=== PATIENT | female | born 1940 | race Caucasian/White ===

== ENCOUNTER 2018-08-18 11:05 | Emergency (ER) | payer BC ==
--- NOTE | 2018-08-18 11:29 | ERPHSYRPT ---
- History of Present Illness Time Seen by Provider: 08/18/18 11:17 Historian: patient Exam Limitations: no limitations Patient Subjective Stated Complaint: PT HERE FOR CHEST PAIN OFF AND ON FOR A WEEK NOW, THIS EPISODE STARTED LAST NIGHT AND STATES ITS BETTER WHEN SHE IS UP AND MOVING AROUND, UNRELEIVED BY TUMS, SHE STATES SHE IS UNDER A LOT OF STRESS Triage Nursing Assessment: PT ALERT, RESP EASY, CHEST CLEAR, ABD SOFT, NO EDEMA NOTED Physician History: 78-year-old white female with history of angina, hypercholesterolemia, high blood pressure, ulcers, Patient arrives with complaint of pain in her anterior chest which occurred this morning at about 7:30 not associated with shortness of breath no nausea no vomiting last evening about a half an hour to 45 minutes resolving with getting up and moving around. Pain is described as an aching when it occurs. The patient is pain-free at this time. Patient states she's been having similar pains every morning when she wakes up she states that the pain goes away when she moves around Patient does state that she's been feeling achy for about 3 weeks generally. She had some diarrhea several weeks ago. Past medical history includes angina, hypercholesterolemia, high blood pressure , ulcers Past surgical history includes cholecystectomy, hysterectomy, heart catheter Social history patient denies tobacco alcohol or illicit drug use . Timing/Duration: other (him pain this morning at 7:30 this am lasting 1/2 hour to 45 minutes, similar pain with waking every morning for the past week resolved with activity.) Activities at Onset: rest Quality: aching Location: substernal Chest Pain Radiation: no radiation Severity of Pain-Max: moderate Severity of Pain-Current: none Modifying Factors: Improves With: other (pain resolves with activity) Associated Symptoms: No nausea, No vomiting, No palpitations, No heartburn, No abdominal pain, No shortness of breath, No cough, No hurts to breathe, No diaphoresis, No chills, No fever, No fatigue, No weakness, No swelling/lump in chest, No syncope, No rash, No headache, No dizziness, No edema, No back pain Prior Chest Pain/Cardiac Workup: cardiac cath (heart catheter several years ago) Nitro Today/Relief: no nitro taken today Aspirin Treatment Today: 81 mg x 1 (81 mg at home 03:00today), 81 mg x 3 (243 mg in er) Allergies/Adverse Reactions: codeine [Codeine] Adverse Reaction (Intermediate, Verified 08/18/18 11:13) chest pain Home Medications: Amlodipine Besylate 10 mg [Norvasc 10 MG] 10 mg PO DAILY 04/19/12 [History] Aspirin 81 gm Chew [Baby Aspirin 81 mg Chew] 81 mg PO DAILY 04/19/12 [History ] Calcium 1 ea DAILY 04/19/12 [History] Enalapril Maleate mg PO DAILY 04/19/12 [History] Multivitamin/Iron/Folic Acid [Centrum Complete Multivit Tab] 1 ea PO DAILY 04/19 [History] Paroxetine HCl 10 mg PO DAILY 04/19/12 [History] Atorvastatin Calcium 80 mg DAILY 08/18/18 [History] Enalapril/Hydrochlorothiazide [Enalapril-Hctz 10-25 mg Tablet] 10 - 25 mg DAILY 08/18/18 [History] Ezetimibe 10 mg DAILY 08/18/18 [History] Hx Tetanus, Diphtheria Vaccination/Date Given: (unknown) Hx Influenza Vaccination/Date Given: No Hx Pneumococcal Vaccination/Date Given: No Immunizations Up to Date: Yes - Review of Systems Constitutional: No Fever, No Chills Eyes: No Symptoms Ears, Nose, & Throat: No Symptoms Respiratory: No Cough, No Dyspnea Cardiac: Chest Pain Abdominal/Gastrointestinal: No Abdominal Pain, No Nausea, No Vomiting, No Diarrhea Genitourinary Symptoms: No Dysuria Musculoskeletal: No Back Pain, No Neck Pain Skin: No Rash Neurological: No Dizziness, No Focal Weakness, No Sensory Changes Psychological: No Symptoms Endocrine: No Symptoms All Other Systems: Reviewed and Negative - Past Medical History Pertinent Past Medical History: Yes Neurological History: No Pertinent History ENT History: No Pertinent History Cardiac History: Angina, High Cholesterol, Hypertension Respiratory History: No Pertinent History Endocrine Medical History: No Pertinent History Musculoskeletal History: No Pertinent History GI Medical History: Ulcer, Other History: No Pertinent History Psycho-Social History: Depression Female Reproductive Disorders: No Pertinent History Other Medical History: bleeding ulcers - Past Surgical History Past Surgical History: Yes Neuro Surgical History: No Pertinent History Cardiac: Cardiac Catheterization Respiratory: No Pertinent History Gastrointestinal: Appendectomy, Cholecystectomy Genitourinary: No Pertinent History Musculoskeletal: No Pertinent History Female Surgical History: Hysterectomy - Social History Smoking Status: Never smoker Exposure to second hand smoke: No Drug Use: none Patient Lives Alone: Yes - Female History Hx Last Menstrual Period: PSOT Hx Now: No - Nursing Vital Signs Nursing Vital Signs: Initial Vital Signs Temperature 98.0 F 08/18/18 11:08 Pulse Rate 74 08/18/18 11:08 Respiratory Rate 16 08/18/18 11:08 Blood Pressure 189/94 08/18/18 11:08 O2 Sat by Pulse Oximetry 99 08/18/18 11:08 Pain Scale Pain Intensity 1 - Physical Exam General Appearance: no apparent distress, alert Eye Exam: PERRL/EOMI, eyes nml inspection Ears, Nose, Throat Exam: normal ENT inspection, moist mucous membranes Neck Exam: normal inspection, non-tender, supple, full range of motion Respiratory Exam: normal breath sounds, lungs clear, No respiratory distress Cardiovascular Exam: regular rate/rhythm, normal heart sounds Gastrointestinal/Abdomen Exam: soft, No tenderness, No mass Back Exam: normal inspection, No CVA tenderness, No vertebral tenderness Extremity Exam: normal inspection, normal range of motion Neurologic Exam: alert, oriented x 3, cooperative, electrician third II-XII nml as tested, normal mood/affect, sensation nml, No motor deficits Skin Exam: normal color, warm, dry SpO2 Interpretation: normal (99%) SpO2: 99 Oxygen Delivery: Room Air - Course Nursing assessment & vital signs reviewed: Yes EKG Interpreted by Me: RATE (72 bpm), Sinus Rhythm, NORMAL AXIS, Other (EKG: Sinus rhythm, 72 bpm, normal axis, no acute st or t wave changes, isolated T- wave inversion v-4) - Radiology Exams Chest X-ray Interpretation: Interpreted by me (cxr: no acute disease process noted) - CT Exams Chest CT Interpretation: Tele-radiologist Report (CTA chest: Impression 1. No evidence of acute pulmonary embolli. 2. Minimal atherosclerosis of the left anterior descending coronary artery. 3. Ground glass opacification in the lower lungs nonspecific finding. 4. 1.71.42 cm mete hypodensity in the right with attenuation of 19 housefield units suggest further evaluation with ultrasound.) Ordered Tests: Active Orders 24 hr Category Date Time Status Chief Deputy Clerk/Bailiff STAT Care 08/18/18 11:23 Active EKG-ER Only STAT Care 08/18/18 11:22 Active IV Insertion STAT Care 08/18/18 11:22 Active Pulse Oximetry (ED) STAT Care 08/18/18 11:22 Active CHEST 1 VIEW (PORTABLE) Stat Exams 08/18/18 11:23 Taken CHEST WITH CONTRAST [CT] Stat Exams 08/18/18 12:17 Taken AMYLASE Stat Lab 08/18/18 11:20 Completed CBC W DIFF Stat Lab 08/18/18 11:20 Completed CMP Stat Lab 08/18/18 11:20 Completed D-DIMER QUANTITATION Stat Lab 08/18/18 11:20 Completed LIPASE Stat Lab 08/18/18 11:20 Completed TROPONIN Q3H Lab 08/18/18 11:20 Completed TROPONIN Q3H Lab 08/18/18 14:12 Completed TROPONIN Q3H Lab 08/18/18 17:30 Ordered TROPONIN Q3H Lab 08/18/18 20:30 Ordered TROPONIN Q3H Lab 08/18/18 23:30 Ordered Medication Summary Discontinued Medications Generic Name Dose Route Start Last Admin Trade Name Freq PRN Reason Stop Dose Admin Aspirin 243 mg 08/18/18 11:22 08/18/18 12:08 Baby Aspirin 81 Mg Chew PO 08/18/18 11:23 243 mg STAT ONE Administration Aspirin Confirm 08/18/18 11:54 Baby Aspirin 81 Mg Chew Administered 08/18/18 11:55 Dose 243 mg .ROUTE .STK-MED ONE Lab/Rad Data: Laboratory Result Diagrams 08/18/18 11:20 08/18/18 11:20 Laboratory Results 08/18/18 08/18/18 08/18/18 Range/Units 14:12 11:20 11:20 WBC (4.0-10.5) K/mm3 RBC (4.1-5.4) M/mm3 Hgb (12.0-16.0) gm/dl Hct (35-47) % MCV (78-100) fl MCH (26-32) pg MCHC (32-36) g/dl RDW (11.5-14.0) % Plt Count (150-450) K/mm3 MPV (6-9.5) fl Gran % (36.0-66.0) % Eos # (Auto) (0-0.5) Absolute Lymphs (auto) (1.0-4.6) Absolute Monos (auto) (0.0-1.3) Lymphocytes % (24.0-44.0) % Monocytes % (0.0-12.0) % Eosinophils % (0.00-5.0) % Basophils % (0.0-0.4) % Absolute Granulocytes (1.4-6.9) Basophils # (0-0.4) D-Dimer 1077 H* (215-500) ng/mL Sodium (137-145) mmol/L Potassium (3.5-5.1) mmol/L Chloride (98-107) mmol/L Carbon Dioxide (22-30) mmol/L Anion Gap (5-15) MEQ/L BUN (7-17) mg/dL Creatinine (0.52-1.04) mg/dL Estimated GFR ML/MIN Glucose (74-106) mg/dL Calcium (8.4-10.2) mg/dL Total Bilirubin (0.2-1.3) mg/dL AST (14-36) U/L ALT (0-35) U/L Alkaline Phosphatase (38-126) U/L Troponin I < 0.012 < 0.012 (0.000-0.034) ng/mL Serum Total Protein (6.3-8.2) g/dL Albumin (3.5-5.0) g/dL Amylase (30-110) U/L Lipase (23-300) U/L 08/18/18 08/18/18 Range/Units 11:20 11:20 WBC 8.0 (4.0-10.5) K/mm3 RBC 4.29 (4.1-5.4) M/mm3 Hgb 13.9 (12.0-16.0) gm/dl Hct 42.4 (35-47) % MCV 98.8 (78-100) fl MCH 32.4 H (26-32) pg MCHC 32.8 (32-36) g/dl RDW 13.7 (11.5-14.0) % Plt Count 243 (150-450) K/mm3 MPV 11.8 H (6-9.5) fl Gran % 64.5 (36.0-66.0) % Eos # (Auto) 0.33 (0-0.5) Absolute Lymphs (auto) 1.79 (1.0-4.6) Absolute Monos (auto) 0.67 (0.0-1.3) Lymphocytes % 22.3 L (24.0-44.0) % Monocytes % 8.4 (0.0-12.0) % Eosinophils % 4.1 (0.00-5.0) % Basophils % 0.7 (0.0-0.4) % Absolute Granulocytes 5.16 (1.4-6.9) Basophils # 0.06 (0-0.4) D-Dimer (215-500) ng/mL Sodium 142 (137-145) mmol/L Potassium 3.6 (3.5-5.1) mmol/L Chloride 102 (98-107) mmol/L Carbon Dioxide 31 H (22-30) mmol/L Anion Gap 12.0 (5-15) MEQ/L BUN 14 (7-17) mg/dL Creatinine 0.60 (0.52-1.04) mg/dL Estimated GFR > 60.0 ML/MIN Glucose 109 H (74-106) mg/dL Calcium 10.5 H (8.4-10.2) mg/dL Total Bilirubin 0.40 (0.2-1.3) mg/dL AST 35 (14-36) U/L ALT 24 (0-35) U/L Alkaline Phosphatase 87 (38-126) U/L Troponin I (0.000-0.034) ng/mL Serum Total Protein 7.5 (6.3-8.2) g/dL Albumin 4.4 (3.5-5.0) g/dL Amylase 52 (30-110) U/L Lipase 59 (23-300) U/L - Progress Progress: improved Air Movement: fair Progress Note: 08/18/18 12:19 78-year-old white female with history of angina, hypercholesterolemia high blood pressure, ulcers. Complaining of pain when she wakes up every morning for the last week described as an aching in her chest. She states this gets better when she gets up and moves around. She states that she had similar pain all day yesterday. This morning she woke up had the pain at about 7:30 AM. The resolved after a half an hour after getting up and around. She is not short of breath has no pain at this time. Patient was EKG noted to have sinus rhythm, 72 bpm, normal axis she does have an isolated T-wave inversion in V4. Chest x-ray is unremarkable troponin within normal limits. Unfortunately the patient's d-dimer is elevated at 1077 Will go ahead and obtain CT of the chest to rule out PE 08/18/18 14:[address] obtained no evidence of pulmonary emboli minimal atherosclerosis and LAD ground glass opacification in the lower lungs nonspecific finding .patient did have a 1.71.42 cm hypodensity in the right lobe of the thyroid within attenuation of 19 Hounsfield units further evaluation with thyroid ultrasound is recommended. 08/18/18 14:15 I discussed the patient's case with Dr. Ferreira who is diamond picker for Dr. Araujo, the patient's closed circuit screen watcher, Patient was not wanting to be admitted to the hospital or transferred. He recommended patient be placed on Imdur 30 mg by mouth daily. As well as nitroglycerin 0.4 mg sublingually when necessary. . Will repeat patient's troponin. If normal will discharge. They will be advised the patient contact her closed circuit screen watcher tomorrow. 08/18/18 14:48 Patient's repeat troponin is normal, patient in no distress. Will discharge with prescription for Imdur and nitroglycerin sublingually has recommended by Dr. Ferreira. Patient also with a hypodensity on her thyroid on CT scan Will recommend patient follow-up with Dr. Benavides. Will discharge - Departure Time of Disposition: 14:49 Departure Disposition: Home Clinical Impression: abnormal's thyroid on CT scan Chest pain Qualifiers: Chest pain type: unspecified Qualified Code(s): R07.9 - Chest pain, unspecified Condition: Fair Critical Care Time: No Referrals: LUDMILA BENAVIDES MD [Primary Care Provider] - Additional Instructions: Return home, rest. Imdur and sublingual nitroglycerin as prescribed. Continue current medications. Contact your closed circuit screen watcher tomorrow to arrange follow-up. you had an abnormality on your thyroid scan on CT you'll need to follow-up with your family doctor regarding this. Return for acute distress or for severe symptoms or for any problems. Prescriptions: Isosorbide Mononitrate 30 mg [Imdur 30 MG] 30 mg PO DAILY #14 tab
[2018-08-18] MEDS ORDERED: BABY ASPIRIN 81 MG CHEW ONE (11:54)
[2018-08-18 12:01] LABS: BASOPHIL % 0.7 % (0.0-0.4); Basophil (Absolute #) 0.06 (0-0.4); Eosinophil % 4.1 % (0.00-5.0); Eosinophil (Absolute #) 0.33 (0-0.5); Granulocyte Absolute (ANC) 5.16 (1.4-6.9); Granulocytes % 64.5 % (36.0-66.0); Hematocrit 42.4 % (35-47); Hemoglobin 13.9 gm/dl (12.0-16.0); Lymphocyte (Absolute #) 1.79 (1.0-4.6); Lymphocytes % 22.3 % (24.0-44.0); Mean Cell Volume 98.8 fl (78-100); Mean Corpuscular Hemoglobin 32.4 pg (26-32); Mean Corpuscular Hgb Concent. 32.8 g/dl (32-36); Mean Platelet Volume 11.8 fl (6-9.5); Monocyte (Absolute #) 0.67 (0.0-1.3); Monocytes % 8.4 % (0.0-12.0); Platelet Count 243 K/mm3 (150-450); Red Blood Count 4.29 M/mm3 (4.1-5.4); Red Cell Distribution Width 13.7 % (11.5-14.0)
[2018-08-18 12:02] LABS: ALBUMIN 4.4 g/dL (3.5-5.0); ALKALINE PHOSPHATASE 87 U/L (38-126); AMYLASE 52 U/L (30-110); BLOOD UREA NITROGEN 14 mg/dL (7-17); CHLORIDE 102 mmol/L (98-107); Calcium 10.5 mg/dL (8.4-10.2); Carbon Dioxide 31 mmol/L (22-30); Glucose 109 mg/dL (74-106); LIPASE 59 U/L (23-300); Potassium 3.6 mmol/L (3.5-5.1); SGOT/AST 35 U/L (14-36); SGPT/ALT 24 U/L (0-35); SODIUM 142 mmol/L (137-145); Total Protein 7.5 g/dL (6.3-8.2)
[2018-08-18] MEDS: BABY ASPIRIN 81 MG CHEW PO ONE (12:08)
[2018-08-18 15:25] VITALS: O2SAT 98
[2018-08-18 15:40] VITALS: BP 144/61; PULSE 74
--- NOTE | 2018-08-18 20:13 | XRAY ---
Indication: Chest pain and elevated d-dimer. Multiple contiguous axial images obtained through the chest using 100 cc Isovue-370 contrast and PE protocol. Comparison: None There is good opacification of the pulmonary arteries to include the lobar and segmental branches. No filling defect or pulmonary embolus. Heart is not enlarged. Aorta is mildly atherosclerotic without aneurysm/dissection. No pathologic mediastinal/hilar lymphadenopathy. Slightly enlarged and heterogeneous right thyroid gland. Examination of the lung parenchyma demonstrates minimal bilateral dependent atelectasis. No suspicious pulmonary mass, infiltrate, or effusion. Bony thorax intact. Limited upper abdomen demonstrates fatty liver and 1.2 cm right lobe hepatic cyst near the dome of the diaphragm. Impression: 1. Negative pulmonary embolus. No acute cardiopulmonary abnormalities. 2. Fatty liver and hepatic cyst. 3. Incidental enlarged heterogeneous right thyroid gland better evaluated with ultrasound if clinically warranted. Comment: Preliminary interpretation was made by [facility]. No critical discrepancy. CTDI 16.67
--- NOTE | 2018-08-18 20:15 | XRAY ---
Indication: Chest pain. Comparison: January 21, 2016. Portable chest remains clear. Heart and mediastinal structures within normal limits. Bony thorax intact. No new/acute findings. Impression: Stable nonacute chest.
== END 2018-08-18 15:39 | disposition home or self-care (01) ==
LOC: ED 11:05
DX: R07.9 Chest pain, unspecified (principal); R94.6 Abnormal results of thyroid function studies; Z79.899 Other long term (current) drug therapy; Z79.82 Long term (current) use of aspirin
CPT/HCPCS: 36000; 36415; 71045; 71260; 80053; 82150; 83690; 84484; 85025; 85379; 93005; 93041; 99284; A9270-GY

== ENCOUNTER 2019-01-14 16:45 | Emergency (ER) | payer BC ==
--- NOTE | 2019-01-14 17:18 | ERPHSYRPT ---
- History of Present Illness Time Seen by Provider: 01/14/19 17:06 Source: patient Exam Limitations: no limitations Patient Subjective Stated Complaint: states had felt irregular heart beat for one week. called heart doctor and he advised to come to the er. denies any pain Triage Nursing Assessment: ambulated to room per self. skin w/d, color normal, resp easy. denies pain. place on heart monitor. sinus rhythm with occasional pvc. Physician History: 78-year-old white female arrives with complaint of palpitations and irregular heart rate symptoms going on for a week. She denies any chest pain denies any shortness of breath she states no nausea no vomiting she states she really hasn't felt ill. She states that she contacted her physician's office and was told to present to the emergency room. Past medical history includes angina, hyperlipidemia, ulcers, depression, bleeding ulcers Past surgical history includes cardiac catheter, appendectomy, cholecystectomy, hysterectomy Social history denies tobacco alcohol or illicit drugs Timing/Duration: today Severity: mild Modifying Factors: Improves With: nothing Associated Symptoms: other (palpitations), No nausea, No vomiting, No abdominal pain, No shortness of breath, No heartburn, No diaphoresis, No cough, No chills , No chest pain, No fever, No headaches, No loss of appetite, No malaise, No rash, No syncope, No seizure, No weakness Allergies/Adverse Reactions: codeine [Codeine] Adverse Reaction (Intermediate, Verified 01/14/19 17:02) chest pain Home Medications: Aspirin 81 gm Chew [Baby Aspirin 81 mg Chew] 81 mg PO DAILY 04/19/12 [History ] Calcium 1 ea DAILY 04/19/12 [History] Multivitamin/Iron/Folic Acid [Centrum Complete Multivit Tab] 1 ea PO DAILY 04/19 [History] Paroxetine HCl 10 mg PO DAILY 04/19/12 [History] Atorvastatin Calcium 80 mg DAILY 08/18/18 [History] Ezetimibe 10 mg DAILY 08/18/18 [History] Lisinopril/Hydrochlorothiazide [Lisinopril-Hctz 20-12.5 mg Tab] 1 each PO DAILY 01/14/19 [History] Hx Tetanus, Diphtheria Vaccination/Date Given: No (unknown) Hx Influenza Vaccination/Date Given: Yes Hx Pneumococcal Vaccination/Date Given: Yes - Review of Systems Constitutional: No Fever, No Chills Eyes: No Symptoms Ears, Nose, & Throat: No Symptoms Respiratory: No Cough, No Dyspnea Cardiac: Palpitations, No Chest Pain, No Edema, No Syncope, No Orthopnea, No PND Abdominal/Gastrointestinal: No Abdominal Pain, No Nausea, No Vomiting, No Diarrhea Genitourinary Symptoms: No Dysuria Musculoskeletal: No Back Pain, No Neck Pain Skin: No Rash Neurological: No Dizziness, No Focal Weakness, No Sensory Changes Psychological: No Symptoms Endocrine: No Symptoms All Other Systems: Reviewed and Negative - Past Medical History Pertinent Past Medical History: Yes Neurological History: No Pertinent History ENT History: No Pertinent History Cardiac History: Angina, High Cholesterol, Hypertension Respiratory History: No Pertinent History Endocrine Medical History: No Pertinent History Musculoskeletal History: No Pertinent History GI Medical History: Ulcer, Other History: No Pertinent History Psycho-Social History: Depression Female Reproductive Disorders: No Pertinent History Other Medical History: bleeding ulcers - Past Surgical History Past Surgical History: Yes Neuro Surgical History: No Pertinent History Cardiac: Cardiac Catheterization Respiratory: No Pertinent History Gastrointestinal: Appendectomy, Cholecystectomy Genitourinary: No Pertinent History Musculoskeletal: No Pertinent History Female Surgical History: Hysterectomy - Social History Smoking Status: Never smoker Exposure to second hand smoke: No Drug Use: none Patient Lives Alone: No - Female History Hx Now: No - Nursing Vital Signs Nursing Vital Signs: Initial Vital Signs Temperature 97.5 F 01/14/19 16:53 Pulse Rate 84 01/14/19 16:53 Respiratory Rate 16 01/14/19 16:53 Blood Pressure 144/68 01/14/19 16:53 O2 Sat by Pulse Oximetry 100 01/14/19 16:53 Pain Scale Pain Intensity 0 - Physical Exam General Appearance: no apparent distress, alert Eye Exam: PERRL/EOMI, eyes nml inspection Ears, Nose, Throat Exam: normal ENT inspection, TMs normal, pharynx normal, moist mucous membranes Neck Exam: normal inspection, non-tender, supple, full range of motion Respiratory Exam: normal breath sounds, lungs clear, No respiratory distress Cardiovascular Exam: normal heart sounds, normal peripheral pulses, capillary refill <2 sec, other (irregular) Gastrointestinal/Abdomen Exam: soft, normal bowel sounds, No tenderness, No mass Back Exam: normal inspection, normal range of motion, No CVA tenderness, No vertebral tenderness Extremity Exam: normal inspection, normal range of motion, pelvis stable Neurologic Exam: alert, oriented x 3, cooperative, environmental program manager II-XII nml as tested, normal mood/affect, nml cerebellar function, nml station & gait, sensation nml, No motor deficits Skin Exam: normal color, warm, dry, No rash Lymphatic Exam: No adenopathy SpO2 Interpretation: normal (98%) SpO2: 98 - Course Nursing assessment & vital signs reviewed: Yes EKG Interpreted by Me: RATE (67 bpm), Left [place] Deviation, Other (EKG: Sinus arrhythmia, 67 bpm, PVCs, left axis deviation, no acute ST or T wave changes noted.) Ordered Tests: Active Orders 24 hr Category Date Time Status Watershed Coordinator STAT Care 01/14/19 17:04 Active EKG-ER Only STAT Care 01/14/19 17:04 Active EKG-ER Only STAT Care 01/14/19 18:19 Active IV Insertion STAT Care 01/14/19 17:04 Active Pulse Oximetry (ED) STAT Care 01/14/19 17:04 Active CBC W DIFF Stat Lab 01/14/19 17:11 Completed CMP Stat Lab 01/14/19 17:11 Completed TROPONIN Q3H Lab 01/14/19 17:15 Completed TROPONIN Q3H Lab 01/14/19 20:15 Ordered TROPONIN Q3H Lab 01/14/19 23:15 Ordered TROPONIN Q3H Lab 01/15/19 02:15 Ordered TROPONIN Q3H Lab 01/15/19 05:15 Ordered TSH [TSH, 3RD Generation] Stat Lab 01/14/19 17:13 Ordered Lab/Rad Data: Laboratory Result Diagrams 01/14/19 17:11 01/14/19 17:11 Laboratory Results 01/14/19 01/14/19 01/14/19 Range/Units 17:15 17:11 17:11 WBC 7.7 (4.0-10.5) K/mm3 RBC 4.01 L (4.1-5.4) M/mm3 Hgb 12.7 (12.0-16.0) gm/dl Hct 40.6 (35-47) % MCV 101.2 H (78-100) fl MCH 31.6 (26-32) pg MCHC 31.3 L (32-36) g/dl RDW 14.1 H (11.5-14.0) % Plt Count 216 (150-450) K/mm3 MPV 12.5 H (6-9.5) fl Gran % 63.8 (36.0-66.0) % Eos # (Auto) 0.33 (0-0.5) Absolute Lymphs (auto) 1.71 (1.0-4.6) Absolute Monos (auto) 0.69 (0.0-1.3) Lymphocytes % 22.2 L (24.0-44.0) % Monocytes % 8.9 (0.0-12.0) % Eosinophils % 4.3 (0.00-5.0) % Basophils % 0.8 (0.0-0.4) % Absolute Granulocytes 4.93 (1.4-6.9) Basophils # 0.06 (0-0.4) Sodium 144 (137-145) mmol/L Potassium 4.0 (3.5-5.1) mmol/L Chloride 105 (98-107) mmol/L Carbon Dioxide 33 H (22-30) mmol/L Anion Gap 9.1 (5-15) MEQ/L BUN 21 H (7-17) mg/dL Creatinine 0.89 (0.52-1.04) mg/dL Estimated GFR > 60.0 ML/MIN Glucose 90 (74-106) mg/dL Calcium 10.1 (8.4-10.2) mg/dL Total Bilirubin 0.60 (0.2-1.3) mg/dL AST 31 (14-36) U/L ALT 21 (0-35) U/L Alkaline Phosphatase 68 (38-126) U/L Troponin I < 0.012 (0.000-0.034) ng/mL Serum Total Protein 7.4 (6.3-8.2) g/dL Albumin 4.2 (3.5-5.0) g/dL - Progress Progress: improved Progress Note: 01/14/19 17:16 78-year-old white female arrives with complaint of feeling as if she has an irregular heart rate for one week she denies any chest pain shortness of breath nausea vomiting she has not been ill she has no fevers. She apparently called her physician's office and was told to present to the emergency room. Patient with an EKG that shows sinus arrhythmia with PAC's 67 bpm, left axis deviation, no acute ST or T wave changes are noted. Will go ahead and check labs CBC CMP TSH T4 troponin. 01/14/19 18:25 Patient's CBC chemistry and troponin are all normal. Repeat EKG is obtained EKG sinus arrhythmia with PACs, 77 bpm, left axis deviation, no acute ST or T wave changes noted. 01/14/19 18:36 Patient in no acute distress. Patient denies shortness of breath chest pain nausea vomiting EKG shows sinus arrhythmia with PACs and one PVC CBC CMP troponin essentially normal. TSH is pending T4 is pending. Case is discussed with Dr. Nagy. Will discharge patient patient to follow-up with Dr. Benavides patient to call Dr. Benavides's office for an appointment. - Departure Time of Disposition: 18:37 Departure Disposition: Home Clinical Impression: Palpitations Condition: Fair Critical Care Time: No Referrals: LUDMILA BENAVIDES MD [Primary Care Provider] - Instructions: Palpitations (DC) Additional Instructions: Return home, rest, plenty of fluids. Follow-up with Dr. Benavides, call and schedule an appointment. Return for acute distress or for severe symptoms.
[2019-01-14 18:02] VITALS: PULSE 68
[2019-01-14 18:05] LABS: ALBUMIN 4.2 g/dL (3.5-5.0); ALKALINE PHOSPHATASE 68 U/L (38-126); ANION GAP 9.1 MEQ/L (5-15); BLOOD UREA NITROGEN 21 mg/dL (7-17); CHLORIDE 105 mmol/L (98-107); Calcium 10.1 mg/dL (8.4-10.2); Carbon Dioxide 33 mmol/L (22-30); Creatinine 1 0.89 mg/dL (0.52-1.04); Glucose 90 mg/dL (74-106); SGOT/AST 31 U/L (14-36); SGPT/ALT 21 U/L (0-35); SODIUM 144 mmol/L (137-145); Total Protein 7.4 g/dL (6.3-8.2)
[2019-01-14 18:15] LABS: BASOPHIL % 0.8 % (0.0-0.4); Basophil (Absolute #) 0.06 (0-0.4); Eosinophil % 4.3 % (0.00-5.0); Eosinophil (Absolute #) 0.33 (0-0.5); Granulocyte Absolute (ANC) 4.93 (1.4-6.9); Granulocytes % 63.8 % (36.0-66.0); Hematocrit 40.6 % (35-47); Hemoglobin 12.7 gm/dl (12.0-16.0); Lymphocyte (Absolute #) 1.71 (1.0-4.6); Lymphocytes % 22.2 % (24.0-44.0); Mean Cell Volume 101.2 fl (78-100); Mean Corpuscular Hgb Concent. 31.3 g/dl (32-36); Mean Platelet Volume 12.5 fl (6-9.5); Monocyte (Absolute #) 0.69 (0.0-1.3); Monocytes % 8.9 % (0.0-12.0); Platelet Count 216 K/mm3 (150-450); Red Blood Count 4.01 M/mm3 (4.1-5.4); Red Cell Distribution Width 14.1 % (11.5-14.0); White Blood Count 7.7 K/mm3 (4.0-10.5)
[2019-01-14 18:16] LABS: Mean Corpuscular Hemoglobin 31.6 pg (26-32)
[2019-01-14 18:49] VITALS: BP 128/53; O2SAT 97
== END 2019-01-14 18:58 | disposition home or self-care (01) ==
LOC: ED 16:45
DX: R00.2 Palpitations (principal); I10 Essential (primary) hypertension; E78.00 Pure hypercholesterolemia, unspecified; E78.5 Hyperlipidemia, unspecified; F32.9 Major depressive disorder, single episode, unspecified; Z79.899 Other long term (current) drug therapy
CPT/HCPCS: 36000; 36415; 80053; 84439; 84443; 84484; 85025; 93005; 93041; 99284

== ENCOUNTER 2020-07-31 16:21 | Inpatient (IN) | payer MEDICARE, BC ==
[2020-07-31] MEDS ORDERED: Zofran 4 MG/2 ML VIAL IV ONE (17:13)
[2020-07-31] MEDS ORDERED: Pepcid 20 MG VIAL IV ONE ×2 (17:13→17:21)
[2020-07-31] MEDS ORDERED: Sodium Chloride 0.9% 1000 ML 1,000 ML IV STA (17:13)
[2020-07-31] MEDS ORDERED: GI COCKTAIL 45 ML (Maalox/Lidocaine) PO ONE (17:13)
[2020-07-31] MEDS ORDERED: Zofran 4 MG/2 ML VIAL ONE (17:21)
--- NOTE | 2020-07-31 17:21 | ERPHSYRPT ---
- History of Present Illness Time Seen by Provider: 07/31/20 16:47 Historian: patient Exam Limitations: no limitations Patient Subjective Stated Complaint: pt here for epigastric pain that started today, with paimiut nasuea,and loose stools. no fever Triage Nursing Assessment: pt alert, resp easy. face mask in place, skin w/d/p. moves all ext well, abd soft Physician History: 80 years old female presented in the ER with chief complaint of epigastric pain sudden onset this afternoon moderate intensity, sharp in nature with radiation to the upper abdomen and substernal without any significant aggravating or relieving factor and started to improve and currently not having any pain on presentation in the ER. Patient report no nausea or vomiting associated with it. She also report having 3-4 episodes of loose stool this morning and has taken Imodium and now did not have any bowel movement for the last 4 hours. De nies any sick contact, fever or chills. Timing/Duration: today, sudden, worse Activities at Onset: rest Quality: dullness, sharpness Abdominal Pain Onset Location: epigastric Pain Radiation: chest Severity of Pain-Max: moderate Severity of Pain-Current: moderate Modifying Factors: Improves With: nothing Associated Symptoms: diarrhea Previous symptoms: no prior history Allergies/Adverse Reactions: codeine [Codeine] Adverse Reaction (Intermediate, Verified 07/31/20 17:01) chest pain Home Medications: Aspirin 81 gm Chew [Baby Aspirin 81 mg Chew] 81 mg PO HS 04/19/12 [History] Calcium 1 tab PO HS 04/19/12 [History] Multivitamin/Iron/Folic Acid [Centrum Complete Multivit Tab] 1 ea PO HS 04/19/12 [History] Ezetimibe 10 mg PO HS 08/18/18 [History] Lisinopril/Hydrochlorothiazide [Lisinopril-Hctz 20-12.5 mg Tab] 1 each PO BID 01/14/19 [History] Atorvastatin Calcium 40 mg PO HS 07/31/20 [History] Paroxetine HCl 20 mg [Paxil 20 MG] 20 mg PO HS 07/31/20 [History] Hx Tetanus, Diphtheria Vaccination/Date Given: No (unknown) Hx Influenza Vaccination/Date Given: Yes Hx Pneumococcal Vaccination/Date Given: Yes Immunizations Up to Date: Yes Travel Risk - International Travel Have you traveled outside of the country in past 3 weeks: No - Coronavirus Screening Are you exhibiting any of the following symptoms?: No Close contact with a COVID-19 positive Pt in past 14-21 Days: No - Review of Systems Constitutional: No Symptoms Eyes: No Symptoms Ears, Nose, & Throat: No Symptoms Respiratory: No Symptoms Cardiac: Chest Pain Abdominal/Gastrointestinal: Abdominal Pain, Diarrhea Genitourinary Symptoms: No Symptoms Musculoskeletal: No Symptoms Skin: No Symptoms Neurological: No Symptoms Psychological: No Symptoms Endocrine: No Symptoms Hematologic/Lymphatic: No Symptoms Immunological/Allergic: No Symptoms - Past Medical History Pertinent Past Medical History: Yes Neurological History: No Pertinent History ENT History: No Pertinent History Cardiac History: Angina, High Cholesterol, Hypertension Respiratory History: No Pertinent History Endocrine Medical History: No Pertinent History Musculoskeletal History: No Pertinent History GI Medical History: Ulcer, Other History: No Pertinent History Psycho-Social History: Depression Female Reproductive Disorders: No Pertinent History Other Medical History: bleeding ulcers - Past Surgical History Past Surgical History: Yes Neuro Surgical History: No Pertinent History Cardiac: Cardiac Catheterization Respiratory: No Pertinent History Gastrointestinal: Appendectomy, Cholecystectomy Genitourinary: No Pertinent History Musculoskeletal: No Pertinent History Female Surgical History: Hysterectomy - Social History Smoking Status: Never smoker Exposure to second hand smoke: No Drug Use: none Patient Lives Alone: No - Female History Hx Last Menstrual Period: post Hx Now: No - Nursing Vital Signs Nursing Vital Signs: Initial Vital Signs Temperature 97.5 F 07/31/20 16:47 Pulse Rate 58 L 07/31/20 16:47 Respiratory Rate 18 07/31/20 16:47 Blood Pressure 148/56 07/31/20 16:47 O2 Sat by Pulse Oximetry 99 07/31/20 16:47 Pain Scale Pain Intensity 2 - Physical Exam General Appearance: no apparent distress, alert Eye Exam: PERRL/EOMI, eyes nml inspection Ears, Nose, Throat Exam: normal ENT inspection, pharynx normal Neck Exam: normal inspection, non-tender, supple, full range of motion Respiratory Exam: normal breath sounds, lungs clear Cardiovascular Exam: regular rate/rhythm, normal heart sounds Gastrointestinal/Abdomen Exam: soft, normal bowel sounds, tenderness (Minimal epigastric) Back Exam: normal inspection, normal range of motion Extremity Exam: normal inspection, normal range of motion, pelvis stable Neurologic Exam: alert, oriented x 3, cooperative Skin Exam: normal color SpO2 Interpretation: normal SpO2: 99 O2 Delivery: Room Air - Course Nursing assessment & vital signs reviewed: Yes EKG Interpreted by Me: RATE (78), Sinus Rhythm, NORMAL AXIS, NORMAL INTERVALS, Other (PACs) Ordered Tests: Active Orders 24 hr Category Date Time Status Bedrest ROUTINE Activity 07/31/20 21:48 Active Up With Assistance ROUTINE Activity 07/31/20 21:48 Active Dresser Tender STAT Care 07/31/20 17:33 Completed Code Status Order ROUTINE Care 07/31/20 21:48 Active EKG-ER Only STAT Care 07/31/20 17:12 Completed Fall Protocol Q1H Care 07/31/20 21:48 Active IV Care Q6H Care 07/31/20 21:48 Active IV Insertion STAT Care 07/31/20 17:12 Completed NPO (ED) STAT Care 07/31/20 17:[address] in Observation ROUTINE Care 07/31/20 21:48 Active Paulie Hose, Apply ROUTINE Care 07/31/20 21:48 Active Weight,Daily 0600 Care 07/31/20 21:48 Active ABDOMEN AND PELVIS W/0 CONTRAS [CT] Stat Exams 07/31/20 18:28 Completed CBC W DIFF AM.LAB Lab 08/01/20 04:00 Ordered CBC W DIFF Stat Lab 07/31/20 17:05 Completed CMP AM.LAB Lab 08/01/20 04:00 Ordered CMP Stat Lab 07/31/20 17:05 Completed CULTURE,URINE Stat Lab 07/31/20 17:05 Received LIPASE Stat Lab 07/31/20 17:05 Completed LIPASE Stat Lab 08/01/20 06:01 Ordered TROPONIN Q3H Lab 07/31/20 17:15 Completed TROPONIN Q3H Lab 07/31/20 19:50 Completed TROPONIN Q3H Lab 07/31/20 23:15 Ordered TROPONIN Q3H Lab 08/01/20 02:15 Ordered TROPONIN Q3H Lab 08/01/20 05:15 Ordered UA W/RFX UR CULTURE Stat Lab 07/31/20 17:05 Completed Transfer Order Routine Transfer 07/31/20 Completed Medication Summary Generic Name Dose Route Start Last Admin Trade Name Freq PRN Reason Stop Dose Admin Lisinopril 20 mg/ 0 mg 07/31/20 23:07 Hydrochlorothiazide 12.5 mg PO 08/30/20 22:59 BID IVANNA Sodium Chloride 1,000 mls @ 100 mls/hr 07/31/20 21:48 07/31/20 22:27 Sodium Chloride 0.9% 1000 Ml IV 08/30/20 21:47 100 mls/hr .Q10H IVANNA Administration Insulin Human Lispro 0 unit 07/31/20 21:48 Humalog SQ 08/30/20 21:47 UD PRN HYPERGLYCEMIA Morphine Sulfate 2 mg 07/31/20 21:48 Morphine Sulfate 2 Mg Inj IV 08/05/20 21:47 Q4H PRN PRN PAIN Ondansetron HCl 4 mg 07/31/20 21:48 Zofran 4 Mg/2 Ml Vial IV 08/30/20 21:47 Q6H PRN PRN NAUSEA/VOMITING Pantoprazole Sodium 40 mg 08/01/20 10:00 Protonix 40 Mg Iv IV 08/31/20 09:59 Q24H10 IVANNA Paroxetine HCl 20 mg 07/31/20 23:00 07/31/20 23:01 Paxil 20 Mg PO 08/30/20 22:59 20 mg HS IVANNA Administration Discontinued Medications Generic Name Dose Route Start Last Admin Trade Name Freq PRN Reason Stop Dose Admin Al Hydrox/Mg Hydrox/Simethicone Confirm 07/31/20 17:23 Maalox Es 30 Ml Unit Dose Administered 07/31/20 17:24 Dose 30 ml .ROUTE .STK-MED ONE Lisinopril 20 mg/ 0 mg 07/31/20 23:00 Hydrochlorothiazide 12.5 mg PO 08/30/20 22:59 DAILY IVANNA Famotidine 20 mg 07/31/20 17:13 07/31/20 17:27 Pepcid 20 Mg Vial IV 07/31/20 17:14 20 mg STAT ONE Administration Famotidine Confirm 07/31/20 17:21 Pepcid 20 Mg Vial Administered 07/31/20 17:22 Dose 20 mg IV .STK-MED ONE Hydrochlorothiazide Confirm 07/31/20 22:57 Hydrodiuril 25 Mg Administered 07/31/20 22:58 Dose 25 mg .ROUTE .STK-MED ONE Sodium Chloride 1,000 mls @ 500 mls/hr 07/31/20 17:13 07/31/20 19:26 Sodium Chloride 0.9% 1000 Ml IV 07/31/20 19:12 Infused .Q2H STA Infusion Sodium Chloride Confirm 07/31/20 17:23 Sodium Chloride 0.9% 1000 Ml Administered 07/31/20 17:24 Dose 1,000 mls @ ud .ROUTE .STK-MED ONE Lidocaine HCl Confirm 07/31/20 17:22 Xylocaine Hcl Viscous * Administered 07/31/20 17:23 Dose 15 ml .ROUTE .STK-MED ONE Lisinopril Confirm 07/31/20 22:57 Zestril 20 Mg Administered 07/31/20 22:58 Dose 20 mg .ROUTE .STK-MED ONE Magnesium Hydroxide 45 ml 07/31/20 17:13 07/31/20 17:27 Gi Cocktail 45 Ml (Maalox/Lidocaine) PO 07/31/20 17:14 45 ml STAT ONE Administration Ondansetron HCl 4 mg 07/31/20 17:13 07/31/20 17:27 Zofran 4 Mg/2 Ml Vial IV 07/31/20 17:14 4 mg STAT ONE Administration Ondansetron HCl Confirm 07/31/20 17:21 Zofran 4 Mg/2 Ml Vial Administered 07/31/20 17:22 Dose 4 mg .ROUTE .STK-MED ONE Lab/Rad Data: Laboratory Result Diagrams 07/31/20 17:05 07/31/20 17:05 Laboratory Results 07/31/20 07/31/20 07/31/20 Range/Units 19:50 19:50 17:15 WBC (4.0-10.5) K/mm3 RBC (4.1-5.4) M/mm3 Hgb (12.0-16.0) gm/dl Hct (35-47) % MCV (78-100) fl MCH (26-32) pg MCHC (32-36) g/dl RDW (11.5-14.0) % Plt Count (150-450) K/mm3 MPV (7.5-11.0) fl Gran % (36.0-66.0) % Eos # (Auto) (0-0.5) Absolute Lymphs (auto) (1.0-4.6) Absolute Monos (auto) (0.0-1.3) Lymphocytes % (24.0-44.0) % Monocytes % (0.0-12.0) % Eosinophils % (0.00-5.0) % Basophils % (0.0-0.4) % Absolute Granulocytes (1.4-6.9) Basophils # (0-0.4) Sodium (137-145) mmol/L Potassium (3.5-5.1) mmol/L Chloride (98-107) mmol/L Carbon Dioxide (22-30) mmol/L Anion Gap (5-15) MEQ/L BUN (7-17) mg/dL Creatinine (0.52-1.04) mg/dL Estimated GFR ML/MIN Glucose (74-106) mg/dL Calcium (8.4-10.2) mg/dL Total Bilirubin (0.2-1.3) mg/dL AST (14-36) U/L ALT (0-35) U/L Alkaline Phosphatase (38-126) U/L Troponin I < 0.012 < 0.012 (0.000-0.034) ng/mL Serum Total Protein (6.3-8.2) g/dL Albumin (3.5-5.0) g/dL Lipase (23-300) U/L Urine Color (YELLOW) Urine Appearance (CLEAR) Urine pH (5-6) Ur Specific [place] (1.005-1.025) Urine Protein (Negative) Urine Ketones (NEGATIVE) Urine Blood (0-5) Paul/ul Urine Nitrite (NEGATIVE) Urine Bilirubin (NEGATIVE) Urine Urobilinogen (0-1) mg/dL Ur Leukocyte Esterase (NEGATIVE) Urine WBC (Auto) (0-5) /HPF Urine RBC (Auto) (0-2) /HPF U Hyaline Cast (Auto) (0-2) /LPF U Epithel Cells (Auto) (FEW) /HPF Urine Bacteria (Auto) (NEGATIVE) /HPF Urine Mucus (Auto) (NEGATIVE) /HPF Urine Culture Reflexed (NO) Urine Glucose (NEGATIVE) mg/dL SARS-CoV-2 (PCR) NEGATIVE (NEGATIVE) 07/31/20 07/31/20 07/31/20 Range/Units 17:05 17:05 17:05 WBC 13.3 H (4.0-10.5) K/mm3 RBC 4.09 L (4.1-5.4) M/mm3 Hgb 13.1 (12.0-16.0) gm/dl Hct 41.3 (35-47) % MCV 101.0 H (78-100) fl MCH 32.0 (26-32) pg MCHC 31.7 L (32-36) g/dl RDW 13.7 (11.5-14.0) % Plt Count 185 (150-450) K/mm3 MPV 11.4 H (7.5-11.0) fl Gran % 87.7 H (36.0-66.0) % Eos # (Auto) 0.09 (0-0.5) Absolute Lymphs (auto) 0.80 L (1.0-4.6) Absolute Monos (auto) 0.70 (0.0-1.3) Lymphocytes % 6.0 L (24.0-44.0) % Monocytes % 5.2 (0.0-12.0) % Eosinophils % 0.7 (0.00-5.0) % Basophils % 0.4 (0.0-0.4) % Absolute Granulocytes 11.70 H (1.4-6.9) Basophils # 0.05 (0-0.4) Sodium 138 (137-145) mmol/L Potassium 3.8 (3.5-5.1) mmol/L Chloride 102 (98-107) mmol/L Carbon Dioxide 30 (22-30) mmol/L Anion Gap 9.8 (5-15) MEQ/L BUN 14 (7-17) mg/dL Creatinine 0.77 (0.52-1.04) mg/dL Estimated GFR > 60.0 ML/MIN Glucose 138 H (74-106) mg/dL Calcium 9.6 (8.4-10.2) mg/dL Total Bilirubin 1.20 (0.2-1.3) mg/dL AST 246 H (14-36) U/L ALT 90 H (0-35) U/L Alkaline Phosphatase 141 H (38-126) U/L Troponin I (0.000-0.034) ng/mL Serum Total Protein 7.5 (6.3-8.2) g/dL Albumin 4.3 (3.5-5.0) g/dL Lipase 2329 H (23-300) U/L Urine Color YELLOW (YELLOW) Urine Appearance SLIGHTLY CLOUDY (CLEAR) Urine pH 7.0 (5-6) Ur Specific [place] 1.013 (1.005-1.025) Urine Protein 30 (Negative) Urine Ketones NEGATIVE (NEGATIVE) Urine Blood MODERATE (0-5) Paul/ul Urine Nitrite NEGATIVE (NEGATIVE) Urine Bilirubin NEGATIVE (NEGATIVE) Urine Urobilinogen NEGATIVE (0-1) mg/dL Ur Leukocyte Esterase NEGATIVE (NEGATIVE) Urine WBC (Auto) 3-5 (0-5) /HPF Urine RBC (Auto) 16-25 (0-2) /HPF U Hyaline Cast (Auto) 0-2 (0-2) /LPF U Epithel Cells (Auto) NONE (FEW) /HPF Urine Bacteria (Auto) RARE (NEGATIVE) /HPF Urine Mucus (Auto) SLIGHT (NEGATIVE) /HPF Urine Culture Reflexed YES (NO) Urine Glucose NEGATIVE (NEGATIVE) mg/dL SARS-CoV-2 (PCR) (NEGATIVE) - Progress Progress: improved, re-examined Progress Note: 07/31/20 80 years old is evaluated for epigastric pain with some radiation to substernal area. EKG showed no acute ST elevations. Negative initial troponin. Patient is offered pain medication but her pain is better without any meds now. She has a white count of 13, chemistry showed lipase in 2300s with some elevated transaminases. I have obtained CT abdomen pelvis which did not show any necrosis of pancreas, has CBD dilatation which could be secondary to her previous cholecystectomy, recommended MRCP/ERCP. I have discussed with Dr. Raya, patient would be make n.p.o., conservative management for pancreatitis and once pancreatic enzymes are improved, will obtain MRCP. Patient is being admitted for observation. Discussed with : Kiran Counseled pt/family regarding: lab results, diagnosis, rad results - Departure Departure Disposition: Observation Clinical Impression: Acute pancreatitis Qualifiers: Pancreatitis type: unspecified pancreatitis type Acute pancreatitis complication: unspecified Qualified Code(s): K85.90 - Acute pancreatitis without necrosis or infection, unspecified Condition: Stable Critical Care Time: No
[2020-07-31] MEDS ORDERED: XYLOCAINE HCl Viscous ONE (17:22)
[2020-07-31] MEDS ORDERED: Sodium Chloride 0.9% 1000 ML 1,000 ML ONE (17:23)
[2020-07-31] MEDS ORDERED: MAALOX ES 30 ML UNIT DOSE ONE (17:23)
[2020-07-31 17:31] LABS: BASOPHIL % 0.4 % (0.0-0.4); Basophil (Absolute #) 0.05 (0-0.4); Eosinophil % 0.7 % (0.00-5.0); Eosinophil (Absolute #) 0.09 (0-0.5); Hematocrit 41.3 % (35-47); Hemoglobin 13.1 gm/dl (12.0-16.0); Mean Corpuscular Hgb Concent. 31.7 g/dl (32-36); Mean Platelet Volume 11.4 fl (7.5-11.0); Monocytes % 5.2 % (0.0-12.0); Neutrophil % 87.7 % (36.0-66.0); Platelet Count 185 K/mm3 (150-450); Red Blood Count 4.09 M/mm3 (4.1-5.4); Red Cell Distribution Width 13.7 % (11.5-14.0); White Blood Count 13.3 K/mm3 (4.0-10.5)
[2020-07-31 17:35] LABS: Appearance SLIGHTLY CLOUDY (CLEAR); Bacteria RARE /HPF (NEGATIVE); Bilirubin NEGATIVE (NEGATIVE); Blood MODERATE Ery/ul (0-5); Glucose NEGATIVE (NEGATIVE); Hyaline Casts 0-2 /LPF (0-2); Ketones NEGATIVE (NEGATIVE); Leukocyte Esterase NEGATIVE (NEGATIVE); Mucus SLIGHT /HPF (NEGATIVE); Nitrite NEGATIVE (NEGATIVE); Protein,Urine Dip 30 (Negative); Specific Gravity 1.013 (1.005-1.025); Urobilinogen NEGATIVE mg/dL (0-1)
[2020-07-31 17:53] LABS: ALBUMIN 4.3 g/dL (3.5-5.0); ALKALINE PHOSPHATASE 141 U/L (38-126); ANION GAP 9.8 MEQ/L (5-15); BLOOD UREA NITROGEN 14 mg/dL (7-17); CHLORIDE 102 mmol/L (98-107); Calcium 9.6 mg/dL (8.4-10.2); Carbon Dioxide 30 mmol/L (22-30); Creatinine 1 0.77 mg/dL (0.52-1.04); EST GLOMERULAR FILTRATION RATE > 60.0 ML/MIN; Glucose 138 mg/dL (74-106); Potassium 3.8 mmol/L (3.5-5.1); SGOT/AST 246 U/L (14-36); SGPT/ALT 90 U/L (0-35); SODIUM 138 mmol/L (137-145); Total Protein 7.5 g/dL (6.3-8.2)
[2020-07-31 18:04] LABS: LIPASE 2329 U/L (23-300)
--- NOTE | 2020-07-31 21:45 | XRAY ---
Indication: Abdomen pain. Pancreatitis. Multiple contiguous axial images obtained through the abdomen and pelvis without contrast as ordered. Comparison: CT renal stone study August 20, 2019. Lung bases again demonstrates minimal atelectasis/scarring. No infiltrate or effusion. Heart is not enlarged. Noncontrasted stomach and bowel loops appear nonobstructed. Normal appendix. Again scattered sigmoid diverticulosis, nonobstructing right renal microcalculi, left renal exophytic cysts, hepatic cysts, hysterectomy, and cholecystectomy. No free fluid/air. Remaining liver, pancreas, spleen, adrenal glands, kidneys, ureters, and bladder appear unremarkable. Stable moderate aortoiliac calcifications without AAA. Osseous structures intact again with osteopenia and mild degenerative changes of the lower lumbar spine. Impression: 1. Stable colonic diverticulosis, nonobstructing right renal microcalculi, left renal cyst, and hepatic cysts. 2. Remaining CT abdomen/pelvis without contrast exam is again negative. Comment: Preliminary interpretation was made by [facility]. No critical discrepancy.
[2020-07-31] MEDS ORDERED: HUMALOG SQ PRN (21:48)
[2020-07-31] MEDS ORDERED: MORPHINE SULFATE 2 MG INJ IV PRN (21:48)
[2020-07-31] MEDS: Sodium Chloride 0.9% 1000 ML 1,000 ML IV SCH (22:27)
[2020-07-31] MEDS ORDERED: Zestril 20 MG ONE (22:57)
[2020-07-31] MEDS ORDERED: hydroDIURIL 25 MG ONE (22:57)
[2020-07-31] MEDS: Zestril 20 MG*** 20 MG, hydroDIURIL 25 MG*** 12.5 MG PO SCH ×4 (23:01→23:10)
[2020-07-31] MEDS: Paxil 20 MG PO SCH (23:01)
[2020-08-01] MEDS: Zofran 4 MG/2 ML VIAL IV PRN (04:47)
[2020-08-01 06:07] LABS: Absolute Neutrophil Ct (ANC) 9.25 (1.4-6.9); BASOPHIL % 0.2 % (0.0-0.4); Basophil (Absolute #) 0.02 (0-0.4); Eosinophil % 0.5 % (0.00-5.0); Eosinophil (Absolute #) 0.05 (0-0.5); Hematocrit 38.5 % (35-47); Hemoglobin 12.1 gm/dl (12.0-16.0); Lymphocyte (Absolute #) 0.43 (1.0-4.6); Lymphocytes % 4.1 % (24.0-44.0); Mean Cell Volume 101.6 fl (78-100); Mean Corpuscular Hemoglobin 31.9 pg (26-32); Mean Corpuscular Hgb Concent. 31.4 g/dl (32-36); Mean Platelet Volume 11.7 fl (7.5-11.0); Monocyte (Absolute #) 0.67 (0.0-1.3); Monocytes % 6.4 % (0.0-12.0); Neutrophil % 88.8 % (36.0-66.0); Platelet Count 166 K/mm3 (150-450); Red Blood Count 3.79 M/mm3 (4.1-5.4); Red Cell Distribution Width 13.7 % (11.5-14.0); White Blood Count 10.4 K/mm3 (4.0-10.5)
[2020-08-01 06:18] LABS: ALBUMIN 3.7 g/dL (3.5-5.0); ALKALINE PHOSPHATASE 167 U/L (38-126); AMYLASE 180 U/L (30-110); ANION GAP 7.2 MEQ/L (5-15); BLOOD UREA NITROGEN 11 mg/dL (7-17); CHLORIDE 104 mmol/L (98-107); Carbon Dioxide 28 mmol/L (22-30); Creatinine 1 0.93 mg/dL (0.52-1.04); EST GLOMERULAR FILTRATION RATE > 60.0 ML/MIN; Glucose 110 mg/dL (74-106); Potassium 3.7 mmol/L (3.5-5.1); SGOT/AST 430 U/L (14-36); SGPT/ALT 291 U/L (0-35); SODIUM 136 mmol/L (137-145); Total Protein 6.6 g/dL (6.3-8.2)
[2020-08-01 06:45] LABS: Slide Review 1 YES
[2020-08-01] MEDS: Zestril 20 MG*** 20 MG, hydroDIURIL 25 MG*** 12.5 MG PO SCH ×6 (07:26→22:08)
[2020-08-01] MEDS ORDERED: Sodium Chloride 0.9% 1000 ML 1,000 ML ONE (07:34)
[2020-08-01] MEDS: Sodium Chloride 0.9% 1000 ML 1,000 ML IV SCH ×2 (07:35→22:09)
[2020-08-01] MEDS: PROTONIX 40 MG IV IV SCH (08:53)
--- NOTE | 2020-08-01 12:20 | PCM.HP ---
History of Present Illness - Chief Complaint Chief Complaint: Pancreatitis History of Present Illness: is a 80 year old female patient of Dr Ifeanyi hsu. Medications & Allergies Home Medications: Home Medication List Aspirin 81 gm Chew [Baby Aspirin 81 mg Chew] 81 mg PO HS 04/19/12 [History Confirmed 07/31/20] Calcium 1 tab PO HS 04/19/12 [History Confirmed 07/31/20] Multivitamin/Iron/Folic Acid [Centrum Complete Multivit Tab] 1 ea PO HS 04/19/12 [History Confirmed 07/31/20] Ezetimibe 10 mg PO HS 08/18/18 [History Confirmed 07/31/20] Lisinopril/Hydrochlorothiazide [Lisinopril-Hctz 20-12.5 mg Tab] 1 each PO BID 01/14/19 [History Confirmed 07/31/20] Atorvastatin Calcium 40 mg PO HS 07/31/20 [History Confirmed 07/31/20] Paroxetine HCl 20 mg [Paxil 20 MG] 20 mg PO HS 07/31/20 [History Confirmed 07/31/20] Allergies/Adverse Reactions: Allergies Allergy/AdvReac Type Severity Reaction Status Date / Time codeine [Codeine] AdvReac Intermediate chest pain Verified 07/31/20 17:01 - Past Medical History Past Medical History: Yes Neurological History: No Pertinent History ENT History: No Pertinent History Cardiac History: Angina, High Cholesterol, Hypertension Respiratory History: No Pertinent History Endocrine Medical History: No Pertinent History Musculoskelatal History: No Pertinent History GI Medical History: Ulcer, Other History: No Pertinent History Pyscho-Social History: Depression Reproductive Disorders: No Pertinent History Comment: bleeding ulcers - Female History Hx Last Menstrual Period: post Are you now?: No - Past Surgical History Past Surgical History: Yes Neuro Surgical History: No Pertinent History Cardiac History: Cardiac Catheterization Respiratory Surgery: No Pertinent History GI Surgical History: Appendectomy, Cholecystectomy Genitourinary Surgical Hx: No Pertinent History Musculskeletal Surgical Hx: No Pertinent History Female Surgical History: Hysterectomy - Social History Smoking Status: Never smoker Exposure to second hand smoke: No Alcohol: None Drug Use: none - Physical Exam Vital Signs: Vital Signs - 24 hr Temp Pulse Resp BP BP Pulse Ox 08/01/20 11:59 18 08/01/20 08:00 98.7 F 83 15 136/61 95 08/01/20 07:54 95 08/01/20 07:38 16 08/01/20 04:30 94 L 08/01/20 04:25 98.2 F 88 16 133/62 84 L 07/31/20 23:13 99 07/31/20 22:05 98.5 F 74 18 151/70 95 07/31/20 20:43 76 18 147/68 97 07/31/20 18:17 74 18 140/59 97 07/31/20 17:32 84 16 141/67 97 07/31/20 16:47 97.5 F 58 L 18 148/56 99 Results - Labs Lab/Micro Results: Lab Results-Last 24 Hours 07/31/20 07/31/20 07/31/20 Range/Units 17:05 17:05 17:05 WBC 13.3 H (4.0-10.5) K/mm3 RBC 4.09 L (4.1-5.4) M/mm3 Hgb 13.1 (12.0-16.0) gm/dl Hct 41.3 (35-47) % MCV 101.0 H (78-100) fl MCH 32.0 (26-32) pg MCHC 31.7 L (32-36) g/dl RDW 13.7 (11.5-14.0) % Plt Count 185 (150-450) K/mm3 MPV 11.4 H (7.5-11.0) fl Gran % 87.7 H (36.0-66.0) % Eos # (Auto) 0.09 (0-0.5) Absolute Lymphs (auto) 0.80 L (1.0-4.6) Absolute Monos (auto) 0.70 (0.0-1.3) Lymphocytes % 6.0 L (24.0-44.0) % Monocytes % 5.2 (0.0-12.0) % Eosinophils % 0.7 (0.00-5.0) % Basophils % 0.4 (0.0-0.4) % Absolute Granulocytes 11.70 H (1.4-6.9) Basophils # 0.05 (0-0.4) Sodium 138 (137-145) mmol/L Potassium 3.8 (3.5-5.1) mmol/L Chloride 102 (98-107) mmol/L Carbon Dioxide 30 (22-30) mmol/L Anion Gap 9.8 (5-15) MEQ/L BUN 14 (7-17) mg/dL Creatinine 0.77 (0.52-1.04) mg/dL Estimated GFR > 60.0 ML/MIN Glucose 138 H (74-106) mg/dL Calcium 9.6 (8.4-10.2) mg/dL Total Bilirubin 1.20 (0.2-1.3) mg/dL AST 246 H (14-36) U/L ALT 90 H (0-35) U/L Alkaline Phosphatase 141 H (38-126) U/L Troponin I (0.000-0.034) ng/mL Serum Total Protein 7.5 (6.3-8.2) g/dL Albumin 4.3 (3.5-5.0) g/dL Amylase (30-110) U/L Lipase 2329 H (23-300) U/L Urine Color YELLOW (YELLOW) Urine Appearance SLIGHTLY CLOUDY (CLEAR) Urine pH 7.0 (5-6) Ur Specific [place] 1.013 (1.005-1.025) Urine Protein 30 (Negative) Urine Ketones NEGATIVE (NEGATIVE) Urine Blood MODERATE (0-5) Paul/ul Urine Nitrite NEGATIVE (NEGATIVE) Urine Bilirubin NEGATIVE (NEGATIVE) Urine Urobilinogen NEGATIVE (0-1) mg/dL Ur Leukocyte Esterase NEGATIVE (NEGATIVE) Urine WBC (Auto) 3-5 (0-5) /HPF Urine RBC (Auto) 16-25 (0-2) /HPF U Hyaline Cast (Auto) 0-2 (0-2) /LPF U Epithel Cells (Auto) NONE (FEW) /HPF Urine Bacteria (Auto) RARE (NEGATIVE) /HPF Urine Mucus (Auto) SLIGHT (NEGATIVE) /HPF Urine Culture Reflexed YES (NO) Urine Glucose NEGATIVE (NEGATIVE) mg/dL SARS-CoV-2 (PCR) (NEGATIVE) Slides for Path Review 07/31/20 07/31/20 07/31/20 Range/Units 17:15 19:50 19:50 WBC (4.0-10.5) K/mm3 RBC (4.1-5.4) M/mm3 Hgb (12.0-16.0) gm/dl Hct (35-47) % MCV (78-100) fl MCH (26-32) pg MCHC (32-36) g/dl RDW (11.5-14.0) % Plt Count (150-450) K/mm3 MPV (7.5-11.0) fl Gran % (36.0-66.0) % Eos # (Auto) (0-0.5) Absolute Lymphs (auto) (1.0-4.6) Absolute Monos (auto) (0.0-1.3) Lymphocytes % (24.0-44.0) % Monocytes % (0.0-12.0) % Eosinophils % (0.00-5.0) % Basophils % (0.0-0.4) % Absolute Granulocytes (1.4-6.9) Basophils # (0-0.4) Sodium (137-145) mmol/L Potassium (3.5-5.1) mmol/L Chloride (98-107) mmol/L Carbon Dioxide (22-30) mmol/L Anion Gap (5-15) MEQ/L BUN (7-17) mg/dL Creatinine (0.52-1.04) mg/dL Estimated GFR ML/MIN Glucose (74-106) mg/dL Calcium (8.4-10.2) mg/dL Total Bilirubin (0.2-1.3) mg/dL AST (14-36) U/L ALT (0-35) U/L Alkaline Phosphatase (38-126) U/L Troponin I < 0.012 < 0.012 (0.000-0.034) ng/mL Serum Total Protein (6.3-8.2) g/dL Albumin (3.5-5.0) g/dL Amylase (30-110) U/L Lipase (23-300) U/L Urine Color (YELLOW) Urine Appearance (CLEAR) Urine pH (5-6) Ur Specific [place] (1.005-1.025) Urine Protein (Negative) Urine Ketones (NEGATIVE) Urine Blood (0-5) Paul/ul Urine Nitrite (NEGATIVE) Urine Bilirubin (NEGATIVE) Urine Urobilinogen (0-1) mg/dL Ur Leukocyte Esterase (NEGATIVE) Urine WBC (Auto) (0-5) /HPF Urine RBC (Auto) (0-2) /HPF U Hyaline Cast (Auto) (0-2) /LPF U Epithel Cells (Auto) (FEW) /HPF Urine Bacteria (Auto) (NEGATIVE) /HPF Urine Mucus (Auto) (NEGATIVE) /HPF Urine Culture Reflexed (NO) Urine Glucose (NEGATIVE) mg/dL SARS-CoV-2 (PCR) NEGATIVE (NEGATIVE) Slides for Path Review 07/31/20 08/01/20 08/01/20 Range/Units 23:31 00:22 02:10 WBC (4.0-10.5) K/mm3 RBC (4.1-5.4) M/mm3 Hgb (12.0-16.0) gm/dl Hct (35-47) % MCV (78-100) fl MCH (26-32) pg MCHC (32-36) g/dl RDW (11.5-14.0) % Plt Count (150-450) K/mm3 MPV (7.5-11.0) fl Gran % (36.0-66.0) % Eos # (Auto) (0-0.5) Absolute Lymphs (auto) (1.0-4.6) Absolute Monos (auto) (0.0-1.3) Lymphocytes % (24.0-44.0) % Monocytes % (0.0-12.0) % Eosinophils % (0.00-5.0) % Basophils % (0.0-0.4) % Absolute Granulocytes (1.4-6.9) Basophils # (0-0.4) Sodium (137-145) mmol/L Potassium (3.5-5.1) mmol/L Chloride (98-107) mmol/L Carbon Dioxide (22-30) mmol/L Anion Gap (5-15) MEQ/L BUN (7-17) mg/dL Creatinine (0.52-1.04) mg/dL Estimated GFR ML/MIN Glucose (74-106) mg/dL Calcium (8.4-10.2) mg/dL Total Bilirubin (0.2-1.3) mg/dL AST (14-36) U/L ALT (0-35) U/L Alkaline Phosphatase (38-126) U/L Troponin I < 0.012 < 0.012 (0.000-0.034) ng/mL Serum Total Protein (6.3-8.2) g/dL Albumin (3.5-5.0) g/dL Amylase (30-110) U/L Lipase 2264 H (23-300) U/L Urine Color (YELLOW) Urine Appearance (CLEAR) Urine pH (5-6) Ur Specific [place] (1.005-1.025) Urine Protein (Negative) Urine Ketones (NEGATIVE) Urine Blood (0-5) Paul/ul Urine Nitrite (NEGATIVE) Urine Bilirubin (NEGATIVE) Urine Urobilinogen (0-1) mg/dL Ur Leukocyte Esterase (NEGATIVE) Urine WBC (Auto) (0-5) /HPF Urine RBC (Auto) (0-2) /HPF U Hyaline Cast (Auto) (0-2) /LPF U Epithel Cells (Auto) (FEW) /HPF Urine Bacteria (Auto) (NEGATIVE) /HPF Urine Mucus (Auto) (NEGATIVE) /HPF Urine Culture Reflexed (NO) Urine Glucose (NEGATIVE) mg/dL SARS-CoV-2 (PCR) (NEGATIVE) Slides for Path Review 08/01/20 08/01/20 08/01/20 Range/Units 05:30 05:30 05:30 WBC 10.4 (4.0-10.5) K/mm3 RBC 3.79 L (4.1-5.4) M/mm3 Hgb 12.1 (12.0-16.0) gm/dl Hct 38.5 (35-47) % MCV 101.6 H (78-100) fl MCH 31.9 (26-32) pg MCHC 31.4 L (32-36) g/dl RDW 13.7 (11.5-14.0) % Plt Count 166 (150-450) K/mm3 MPV 11.7 H (7.5-11.0) fl Gran % 88.8 H (36.0-66.0) % Eos # (Auto) 0.05 (0-0.5) Absolute Lymphs (auto) 0.43 L (1.0-4.6) Absolute Monos (auto) 0.67 (0.0-1.3) Lymphocytes % 4.1 L (24.0-44.0) % Monocytes % 6.4 (0.0-12.0) % Eosinophils % 0.5 (0.00-5.0) % Basophils % 0.2 (0.0-0.4) % Absolute Granulocytes 9.25 H (1.4-6.9) Basophils # 0.02 (0-0.4) Sodium 136 L (137-145) mmol/L Potassium 3.7 (3.5-5.1) mmol/L Chloride 104 (98-107) mmol/L Carbon Dioxide 28 (22-30) mmol/L Anion Gap 7.2 (5-15) MEQ/L BUN 11 (7-17) mg/dL Creatinine 0.93 (0.52-1.04) mg/dL Estimated GFR > 60.0 ML/MIN Glucose 110 H (74-106) mg/dL Calcium 9.0 (8.4-10.2) mg/dL Total Bilirubin 0.80 (0.2-1.3) mg/dL AST 430 H (14-36) U/L ALT 291 H (0-35) U/L Alkaline Phosphatase 167 H (38-126) U/L Troponin I 0.013 (0.000-0.034) ng/mL Serum Total Protein 6.6 (6.3-8.2) g/dL Albumin 3.7 (3.5-5.0) g/dL Amylase 180 H (30-110) U/L Lipase (23-300) U/L Urine Color (YELLOW) Urine Appearance (CLEAR) Urine pH (5-6) Ur Specific [place] (1.005-1.025) Urine Protein (Negative) Urine Ketones (NEGATIVE) Urine Blood (0-5) Paul/ul Urine Nitrite (NEGATIVE) Urine Bilirubin (NEGATIVE) Urine Urobilinogen (0-1) mg/dL Ur Leukocyte Esterase (NEGATIVE) Urine WBC (Auto) (0-5) /HPF Urine RBC (Auto) (0-2) /HPF U Hyaline Cast (Auto) (0-2) /LPF U Epithel Cells (Auto) (FEW) /HPF Urine Bacteria (Auto) (NEGATIVE) /HPF Urine Mucus (Auto) (NEGATIVE) /HPF Urine Culture Reflexed (NO) Urine Glucose (NEGATIVE) mg/dL SARS-CoV-2 (PCR) (NEGATIVE) Slides for Path Review YES - Radiology Impressions Radiology Exams & Impressions: Radiology Procedures Category Date Time Status ABDOMEN AND PELVIS W/0 CONTRAS [CT] Stat Exams 07/31/20 18:28 Completed - Other Procedures and Tests Respiratory Therapy 08/01/20 05:16 Oxygen Nasal Cannula 2 lpm Assessment/Plan (1) Acute pancreatitis Current Visit: Yes Status: Acute Qualifiers: Pancreatitis type: biliary Acute pancreatitis complication: unspecified Qualified Code(s): K85.10 - Biliary acute pancreatitis without necrosis or infection Assessment & Plan: S/P cholecystectomy years ago Code(s): K85.90 - ACUTE PANCREATITIS WITHOUT NECROSIS OR INFECTION, UNSP
[2020-08-01] MEDS: Paxil 20 MG PO SCH (22:08)
[2020-08-02 05:56] LABS: BASOPHIL % 0.4 % (0.0-0.4); Basophil (Absolute #) 0.03 (0-0.4); Eosinophil % 5.8 % (0.00-5.0); Eosinophil (Absolute #) 0.44 (0-0.5); Hematocrit 32.7 % (35-47); Hemoglobin 10.2 gm/dl (12.0-16.0); Lymphocyte (Absolute #) 1.28 (1.0-4.6); Lymphocytes % 16.9 % (24.0-44.0); Mean Cell Volume 102.5 fl (78-100); Mean Corpuscular Hgb Concent. 31.2 g/dl (32-36); Mean Platelet Volume 11.9 fl (7.5-11.0); Monocyte (Absolute #) 1.01 (0.0-1.3); Monocytes % 13.4 % (0.0-12.0); Neutrophil % 63.5 % (36.0-66.0); Platelet Count 156 K/mm3 (150-450); Red Blood Count 3.19 M/mm3 (4.1-5.4); Red Cell Distribution Width 13.7 % (11.5-14.0); White Blood Count 7.6 K/mm3 (4.0-10.5)
[2020-08-02 06:37] LABS: ALKALINE PHOSPHATASE 119 U/L (38-126); AMYLASE 63 U/L (30-110); BLOOD UREA NITROGEN 12 mg/dL (7-17); CHLORIDE 106 mmol/L (98-107); Calcium 8.7 mg/dL (8.4-10.2); Carbon Dioxide 29 mmol/L (22-30); Creatinine 1 0.84 mg/dL (0.52-1.04); EST GLOMERULAR FILTRATION RATE > 60.0 ML/MIN; Glucose 102 mg/dL (74-106); LIPASE 71 U/L (23-300); SGOT/AST 167 U/L (14-36); SGPT/ALT 158 U/L (0-35); SODIUM 139 mmol/L (137-145); Total Protein 5.6 g/dL (6.3-8.2)
[2020-08-02 07:30] LABS: ANION GAP 7.7 MEQ/L (5-15); Potassium 3.7 mmol/L (3.5-5.1)
--- NOTE | 2020-08-02 08:05 | PCM.NOTE ---
Date and Time: 08/02/20 0804 Subjective Assessment: patient denies pain, no nausea or vomiting overnight. she had some ice cream yesterday and had diarrhea afterward she states, currently has CLD ordered Objective Exam General Appearance: no apparent distress, alert Respiratory Exam: normal breath sounds, lungs clear, No respiratory distress Cardiovascular Exam: regular rate/rhythm, normal heart sounds Gastrointestinal/Abdomen Exam: soft, No tenderness, No mass Extremity Exam: normal inspection, normal range of motion OBJECTIVE DATA Vital Signs: Vital Signs - 24 hr Temp Pulse Resp BP Pulse Ox 08/02/20 07:34 16 08/02/20 07:16 92 L 08/02/20 07:15 98.3 F 59 L 20 120/60 92 L 08/02/20 04:00 14 08/02/20 03:44 97.9 F 64 12 114/57 90 L 08/02/20 00:00 16 08/01/20 23:33 98.0 F 101 H 16 125/58 98 08/01/20 20:00 98.8 F 70 16 119/54 95 08/01/20 16:00 98.0 F 82 22 113/57 90 L 08/01/20 12:00 97.9 F 77 15 123/60 96 08/01/20 11:59 18 Pain Assessment - Last Documented Pain Intensity 0 Pain Scale Used 0-10 Pain Scale Intake and Output: Intake & Output 07/30/20 07/31/20 08/01/20 08/02/20 11:59 11:59 11:59 11:59 Intake Total 647 2796 Output Total 350 700 Balance 297 2096 Weight 57.4 kg 58 kg Lab Results: Lab Results-Last 24 Hours 08/02/20 08/02/20 Range/Units 04:45 04:45 WBC 7.6 (4.0-10.5) K/mm3 RBC 3.19 L (4.1-5.4) M/mm3 Hgb 10.2 L (12.0-16.0) gm/dl Hct 32.7 L (35-47) % MCV 102.5 H (78-100) fl MCH 32.0 (26-32) pg MCHC 31.2 L (32-36) g/dl RDW 13.7 (11.5-14.0) % Plt Count 156 (150-450) K/mm3 MPV 11.9 H (7.5-11.0) fl Gran % 63.5 (36.0-66.0) % Eos # (Auto) 0.44 (0-0.5) Absolute Lymphs (auto) 1.28 (1.0-4.6) Absolute Monos (auto) 1.01 (0.0-1.3) Lymphocytes % 16.9 L (24.0-44.0) % Monocytes % 13.4 H (0.0-12.0) % Eosinophils % 5.8 H (0.00-5.0) % Basophils % 0.4 (0.0-0.4) % Absolute Granulocytes 4.80 (1.4-6.9) Basophils # 0.03 (0-0.4) Sodium 139 (137-145) mmol/L Potassium 3.7 (3.5-5.1) mmol/L Chloride 106 (98-107) mmol/L Carbon Dioxide 29 (22-30) mmol/L Anion Gap 7.7 (5-15) MEQ/L BUN 12 (7-17) mg/dL Creatinine 0.84 (0.52-1.04) mg/dL Estimated GFR > 60.0 ML/MIN Glucose 102 (74-106) mg/dL Calcium 8.7 (8.4-10.2) mg/dL Total Bilirubin 0.40 (0.2-1.3) mg/dL AST 167 H (14-36) U/L ALT 158 H (0-35) U/L Alkaline Phosphatase 119 (38-126) U/L Serum Total Protein 5.6 L (6.3-8.2) g/dL Albumin 3.0 L (3.5-5.0) g/dL Amylase 63 (30-110) U/L Lipase 71 (23-300) U/L Radiology Exams: Radiology Procedures Category Date Time Status ABDOMEN AND PELVIS W/0 CONTRAS [CT] Stat Exams 07/31/20 18:28 Completed MRI ABDOMEN WITH CONTRAST [MRI] Routine Exams 08/02/20 08:00 Ordered Assessment/Plan (1) Acute pancreatitis Current Visit: Yes Status: Acute Qualifiers: Pancreatitis type: biliary Acute pancreatitis complication: unspecified Qualified Code(s): K85.10 - Biliary acute pancreatitis without necrosis or infection Assessment & Plan: enzymes normalized, patient without pain or nausea/vomiting. with increased LFT's will have MRCP this morning, if no obstruction seen will advance diet. if CBD stone etc will likely need ERCP Code(s): K85.90 - ACUTE PANCREATITIS WITHOUT NECROSIS OR INFECTION, UNSP
[2020-08-02] MEDS: Sodium Chloride 0.9% 1000 ML 1,000 ML IV SCH ×3 (08:12→20:10)
[2020-08-02] MEDS ORDERED: NON-FORMULARY ITEM (Lisinopril/Hydrochlorothiazide [Lisinopril-Hctz 20-12.5 Mg Tab] 1 EACH PO SCH (10:00)
[2020-08-02] MEDS: PROTONIX 40 MG IV IV SCH (10:03)
[2020-08-02] MEDS: Zestril 20 MG*** 20 MG, hydroDIURIL 25 MG*** 12.5 MG PO SCH ×4 (10:03→22:29)
--- NOTE | 2020-08-02 11:06 | XRAY ---
Exam: MRI of the abdomen without IV contrast (MRCP) from 08/02/2020. Comparison: CT of the abdomen and pelvis without IV contrast from 07/31/2020 and MRI of the abdomen without and with IV contrast from 11/05/2019. Indication: History of cholecystectomy and hysterectomy, pancreatitis. Technique: Multiple T1 weighted and T2 weighted axial and coronal images were obtained including 3-D reconstructed images of the biliary tree and pancreatic duct, per protocol. Findings: Images of the pancreas appear unremarkable. Specifically, I see no evidence of pancreatic head mass. The pancreatic duct appears unremarkable on the 3-D reconstructed images. No definite pancreatic duct stone or obstruction is seen. The patient is status post cholecystectomy. I again see a small oval-shaped cyst within the upper medial aspect of the right lobe of the liver and within the inferior lateral aspect of the right lobe of the liver. No other liver abnormalities are seen. The intrahepatic bile ducts appear unremarkable. Both the common hepatic duct and common bile duct appear prominent, each measuring a maximum 1.2 cm in diameter. A somewhat elongated but otherwise unremarkable appearing cystic duct remnant is seen. On the 3-D reconstructed images, I see no definite common bile duct stenosis or intraluminal filling defect to suggest a stone, particularly within the distal common bile duct. The visualized intrahepatic bile ducts appear unremarkable as well. I again note a couple tiny cortical cysts within each kidney. There is a somewhat larger 2.0 cm oval-shaped cortical cyst abutting the posterior lateral aspect of the upper pole of the left kidney. Limited images of the spleen appear unremarkable. I see no definite adrenal gland lesion. Impression: 1. The pancreas appears of unremarkable signal intensity and unremarkable morphology. The pancreatic duct appeared unremarkable without evidence of obstruction or intraluminal stones. 2. The patient is status post cholecystectomy. Visualized intrahepatic biliary ducts appear unremarkable. Both the common hepatic duct and common bile duct appear prominent, each measuring up to 1.2 cm in diameter. However, no strictures or intraluminal stones are seen, particularly within the distal common bile duct. 3. A couple hepatic cysts and several small bilateral renal cortical cysts are again seen.
[2020-08-02] MEDS ORDERED: FLUZONE HIGH-DOSE QUAD 2020-21 IM ONE (13:00)
[2020-08-02] MEDS: Zofran 4 MG/2 ML VIAL IV PRN (15:44)
[2020-08-02] MEDS ORDERED: BABY ASPIRIN 81 MG CHEW PO SCH (22:00)
[2020-08-02] MEDS ORDERED: CALCIUM PO SCH (22:00)
[2020-08-02] MEDS ORDERED: Calcium 500MG W/Vit D Tablet PO SCH (22:00)
[2020-08-02] MEDS ORDERED: ECOTRIN 81 MG PO SCH (22:00)
[2020-08-02] MEDS: Paxil 20 MG PO SCH (22:29)
[2020-08-03 05:14] LABS: Hematocrit 32.2 % (35-47); Hemoglobin 10.2 gm/dl (12.0-16.0); Mean Cell Volume 101.6 fl (78-100); Mean Corpuscular Hemoglobin 32.2 pg (26-32); Mean Corpuscular Hgb Concent. 31.7 g/dl (32-36); Mean Platelet Volume 11.7 fl (7.5-11.0); Platelet Count 153 K/mm3 (150-450); Red Blood Count 3.17 M/mm3 (4.1-5.4); Red Cell Distribution Width 13.4 % (11.5-14.0); White Blood Count 6.9 K/mm3 (4.0-10.5)
[2020-08-03 05:22] LABS: ALKALINE PHOSPHATASE 102 U/L (38-126); AMYLASE 33 U/L (30-110); ANION GAP 3.9 MEQ/L (5-15); BLOOD UREA NITROGEN 7 mg/dL (7-17); CHLORIDE 104 mmol/L (98-107); Calcium 8.7 mg/dL (8.4-10.2); Carbon Dioxide 32 mmol/L (22-30); Creatinine 1 0.69 mg/dL (0.52-1.04); EST GLOMERULAR FILTRATION RATE > 60.0 ML/MIN; Glucose 96 mg/dL (74-106); LIPASE 57 U/L (23-300); MAGNESIUM 1.8 mg/dL (1.6-2.3); Potassium 3.2 mmol/L (3.5-5.1); SGOT/AST 83 U/L (14-36); SGPT/ALT 135 U/L (0-35); SODIUM 137 mmol/L (137-145); Total Protein 5.7 g/dL (6.3-8.2)
[2020-08-03] MEDS: Sodium Chloride 0.9% 1000 ML 1,000 ML IV SCH (05:48)
[2020-08-03 05:53] LABS: Basophil 1 % (0.0-1.0); Lymphocytes 17 % (24-44); Monocyte 7 % (0.0-12.0); Neutrophils 75 % (36.0-66.0); Platelet Estimate NORMAL (NORMAL); Total Cells Counted 100
--- NOTE | 2020-08-03 08:59 | PCM.DS ---
Discharge Summary Date of Admission: 08/01/20 12:19 Admitting Physician: LUDMILA BENAVIDES Consults: Consults on Case 08/01/20 12:27 Consult Surgery ROUTINE Primary Care Provider: LUDMILA BENAVIDES Allergies Allergies codeine [Codeine] Adverse Reaction (Intermediate, Verified 07/31/20 17:01) chest pain Hospital Summary - Hospital Course Hospital Course: Pt is an [address] Benavides' with who came in to ER with several hours of abd pain and was found to have pancreatitis with lipase 2300. Her CT abd/pelvis was non acute. MRCP with no stricture or stones. She started tolerating po; CLD went well but when she had regular diet last night she had a large amount of diarrhea. Apparently she started having diarrhea prior to admission but had taken some immodium and it stopped. This morning she will try a bland diet; I advised just to eat a small amount (1/2 piece of toast) and wait several hours; if no diarrhea, will be fine to d/c to home. If she does have diarrhea, will test for C. diff and if neg can try taking immodium again. Pt agrees she has not been a drinker and does not have her gallbladder. Her overnight pulse ox showed desat into the 80s for 6 minutes; will order home sleep study as a follow up. Pt to f/u with Dr. Benavides. - Vitals & Intake/Output Vital Signs: Vital Signs Temperature 98.0 F 08/03/20 07:51 Pulse Rate 76 08/03/20 07:51 Respiratory Rate 14 08/03/20 07:51 Blood Pressure 147/62 08/03/20 07:51 O2 Sat by Pulse Oximetry 90 L 08/03/20 08:30 Intake & Output: Intake & Output 07/31/20 08/01/20 08/02/20 08/03/20 11:59 11:59 11:59 11:59 Intake Total 647 2796 1510 Output Total 566 564 8404 Balance 297 2096 -340 Weight 57.4 kg 58 kg 58.4 kg - Lab Result Diagrams: 08/03/20 04:36 08/03/20 04:36 Lab Results-Last 24 Hrs: Lab Results-Last 24 Hours 08/03/20 08/03/20 Range/Units 04:36 04:36 WBC 6.9 (4.0-10.5) K/mm3 RBC 3.17 L (4.1-5.4) M/mm3 Hgb 10.2 L (12.0-16.0) gm/dl Hct 32.2 L (35-47) % MCV 101.6 H (78-100) fl MCH 32.2 H (26-32) pg MCHC 31.7 L (32-36) g/dl RDW 13.4 (11.5-14.0) % Plt Count 153 (150-450) K/mm3 MPV 11.7 H (7.5-11.0) fl Segmented Neutrophils 75 H (36.0-66.0) % Lymphocytes (Manual) 17 L (24-44) % Monocytes (Manual) 7 (0.0-12.0) % Basophils (Manual) 1 (0.0-1.0) % Platelet Estimate NORMAL (NORMAL) RBC Morphology NORMAL Sodium 137 (137-145) mmol/L Potassium 3.2 L (3.5-5.1) mmol/L Chloride 104 (98-107) mmol/L Carbon Dioxide 32 H (22-30) mmol/L Anion Gap 3.9 L (5-15) MEQ/L BUN 7 (7-17) mg/dL Creatinine 0.69 (0.52-1.04) mg/dL Estimated GFR > 60.0 ML/MIN Glucose 96 (74-106) mg/dL Calcium 8.7 (8.4-10.2) mg/dL Magnesium 1.8 (1.6-2.3) mg/dL Total Bilirubin 0.40 (0.2-1.3) mg/dL AST 83 H (14-36) U/L ALT 135 H (0-35) U/L Alkaline Phosphatase 102 (38-126) U/L Serum Total Protein 5.7 L (6.3-8.2) g/dL Albumin 3.0 L (3.5-5.0) g/dL Amylase 33 (30-110) U/L Lipase 57 (23-300) U/L Micro Results-Entire Visit: Microbiology 07/31/20 17:05 Urine Culture - Final Urine, Void MIXED HEAVEN; 3 OR MORE TYPES. NO PREDOMINANT ORGANISM. NO FURTHER WORKUP. PLEASE RESUBMIT IF CLINICALLY INDICATED. - Radiology Exams Ordered Rad Exams-Entire Visit: Radiology Procedures Category Date Time Status MRI ABD W/O CONTRAST [MRI] Routine Exams 08/02/20 08:00 Completed - Procedures and Test Procedures and Tests throughout Hospitalization: Therapy Orders & Screens 08/01/20 05:16 Oxygen Nasal Cannula 2 lpm Comment: Diagnosis: Pancreatitis 08/03/20 08:42 RT Miscellaneous Order ROUTINE Comment: Physician Instructions: Reason For Exam: arrange for outpt sleep study Diagnosis: Acute Pancreatitis Discharge Exam General Appearance: no apparent distress, alert Neurologic Exam: cooperative, normal mood/affect Eye Exam: eyes nml inspection Ears, Nose, Throat Exam: moist mucous membranes Neck Exam: normal inspection Respiratory Exam: normal breath sounds, lungs clear, No crackles/rales, No rhonchi, No wheezing Cardiovascular Exam: regular rate/rhythm, normal heart sounds, No murmur Gastrointestinal/Abdomen Exam: soft, No normal bowel sounds (hypoactive but present), No tenderness, No distention, No mass, No guarding, No rebound Extremity Exam: normal inspection, swelling (trace pretibial edema bilat L>R) Skin Exam: normal color, warm, dry, No rash Final Diagnosis/Problem List - Final Discharge Diagnosis/Problem (1) Acute pancreatitis Current Visit: Yes Status: Acute Assessment & Plan: Resolved. Lipase nl for the past 2 days. Unsure etiology. Pt to f/u with Dr. Benavides next week. Code(s): K85.90 - ACUTE PANCREATITIS WITHOUT NECROSIS OR INFECTION, UNSP (2) Diarrhea Current Visit: Yes Status: Acute Assessment & Plan: If has recurrent diarrhea, will check for c. diff and if neg give immodium. Could still go home today if it resolved at that point. Code(s): R19.7 - DIARRHEA, UNSPECIFIED (3) Hypokalemia Current Visit: Yes Status: Acute Assessment & Plan: mild, K+ 3.2, likely due to diarrhea. Replete orally. Code(s): E87.6 - HYPOKALEMIA - Discharge Disposition: Home, Self-Care Condition: Stable Prescriptions: Continue Calcium 1 tab PO HS Aspirin 81 gm Chew [Baby Aspirin 81 mg Chew] 81 mg PO HS Multivitamin/Iron/Folic Acid [Centrum Complete Multivit Tab] 1 ea PO HS Ezetimibe 10 mg PO HS Lisinopril/Hydrochlorothiazide [Lisinopril-Hctz 20-12.5 mg Tab] 1 each PO BID Paroxetine HCl 20 mg [Paxil 20 MG] 20 mg PO HS Atorvastatin Calcium 40 mg PO HS Follow up with: LUDMILA BENAVIDES MD [Primary Care Provider] - 1 Week
[2020-08-03] MEDS ORDERED: Klor Con 10 MEQ PO ONE (09:03)
[2020-08-03] MEDS: Zestril 20 MG*** 20 MG, hydroDIURIL 25 MG*** 12.5 MG PO SCH ×2 (09:06)
[2020-08-03] MEDS: PROTONIX 40 MG IV IV SCH (09:07)
[2020-08-03 12:31] LABS: HEPATITIS A IGM Non Reactive (Non Reactive); HEPATITIS B VIRUS CORE TOT AB Non Reactive (Non Reactive); HEPATITIS C VIRUS ANTIBODY Non Reactive (Non Reactive); Hepatitis B Surface Ab.Quant. <3.50 mIU/mL (0.00-8.49); Hepatitis B Surface Antigen Non Reactive (Non Reactive)
[2020-08-03 12:54] VITALS: BP 162/71; PULSE 65; O2SAT 94
== END 2020-08-03 15:52 | disposition home or self-care (01) | DRG 440 ==
LOC: ED 16:21 → MED SURG 21:45 → OBSVTOIN 08-01 12:19
PROVIDERS: ADMIT Family Medicine; ATTEND Family Medicine
DX: K85.90 Acute pancreatitis without necrosis or infection, unspecified (principal); R19.7 Diarrhea, unspecified; E87.6 Hypokalemia; I10 Essential (primary) hypertension; E78.00 Pure hypercholesterolemia, unspecified; Z79.899 Other long term (current) drug therapy
CPT/HCPCS: 36000; 36415; 74176; 74181; 80053; 80074; 81001; 82150; 83690; 83735; 84484; 85025; 87086; 93005; 93041; 93268; 94760; 94762; 96360; 96361; 96374; 96375; 99285; G0008; G0378; U0003; 90662; J2405; A9270-GY

== ENCOUNTER 2022-06-18 18:31 | Observation (INO) | payer BC ==
--- NOTE | 2022-06-18 19:02 | ERPHSYRPT ---
- History of Present Illness Time Seen by Provider: 06/18/22 18:43 Historian: patient Exam Limitations: no limitations Patient Subjective Stated Complaint: Chest pain Triage Nursing Assessment: Patient brought into ED per EMS and transferred to bed with assist of 3. Patient A+O x3. Patient's skin pink, warm and dry. Patient states around 1600 she started having chest pain in the mid sternal area that went down into her abdomen. Patient also complains of N/V and diarrhea yesterday. Patient curretly pain free after Nitro per EMS. Physician History: 82 years old female with a history of hypertension presented to the ER with chief complaint of substernal chest pain started around 4 PM this afternoon sudden onset, moderate intensity, dull pressure midsternal with radiating down to epigastric area, took 2 baby aspirin with no significant relief. Patient called EMS and received 2 more baby aspirin and nitro which relieved the pain. Currently she is chest pain-free. Patient also reports having some GI symptoms couple of days ago with nausea vomiting diarrhea which resolved last night. No abdominal pain nausea or vomiting currently. No fever or chills reported. Timing/Duration: hour(s) (3), constant, resolved prior to arrival, sudden, improved Activities at Onset: rest Quality: dullness Location: substernal Chest Pain Radiation: abdomen Severity of Pain-Max: moderate Severity of Pain-Current: none Modifying Factors: Improves With: nitroglycerin, aspirin Prior Chest Pain/Cardiac Workup: no prior chest pain Nitro Today/Relief: 0.4 mg x 1 Aspirin Treatment Today: 81 mg x 4 Allergies/Adverse Reactions: codeine [Codeine] Adverse Reaction (Intermediate, Verified 06/18/22 18:34) chest pain Home Medications: Aspirin 81 gm Chew [Baby Aspirin 81 mg Chew] 81 mg PO HS 04/19/12 [History] Multivitamin/Iron/Folic Acid [Centrum Complete Multivit Tab] 1 ea PO HS 04/19/12 [History] Ezetimibe 10 mg PO HS 08/18/18 [History] Atorvastatin Calcium 40 mg PO HS 07/31/20 [History] Paroxetine HCl 20 mg [Paxil 20 MG] 20 mg PO HS 07/31/20 [History] Amlodipine Besylate 1 tab PO DAILY 06/18/22 [History] Lisinopril 20 mg [Zestril 20 MG] 1 tab PO BID 06/18/22 [History] Oxybutynin Chloride Xl 5 mg [Ditropan XL 5 MG] 1 tab PO DAILY 06/18/22 [History] Hx Tetanus, Diphtheria Vaccination/Date Given: No (unknown) Hx Influenza Vaccination/Date Given: Yes Hx Pneumococcal Vaccination/Date Given: Yes Immunizations Up to Date: Yes Travel Risk - International Travel Have you traveled outside of the country in past 3 weeks: No - Coronavirus Screening Are you exhibiting any of the following symptoms?: No Close contact with a COVID-19 positive Pt in past 14-21 Days: No - Vaccine Status Have you recieved a Covid-19 vaccination: Yes 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 Medical 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: [employer] - Vaccination Dates Date of 2cond Vaccination (if applicable): na - Review of Systems Constitutional: No Symptoms Eyes: No Symptoms Ears, Nose, & Throat: No Symptoms Respiratory: No Symptoms Cardiac: Chest Pain Abdominal/Gastrointestinal: No Symptoms Genitourinary Symptoms: No Symptoms Musculoskeletal: No Symptoms Skin: No Symptoms Neurological: No Symptoms Psychological: No Symptoms Endocrine: No Symptoms Hematologic/Lymphatic: No Symptoms Immunological/Allergic: No Symptoms - Past Medical History Pertinent Past Medical History: Yes Neurological History: No Pertinent History ENT History: No Pertinent History Cardiac History: Angina, High Cholesterol, Hypertension Respiratory History: No Pertinent History Endocrine Medical History: No Pertinent History Musculoskeletal History: No Pertinent History GI Medical History: Ulcer, Other History: No Pertinent History Psycho-Social History: Depression Female Reproductive Disorders: No Pertinent History Other Medical History: bleeding ulcers - Past Surgical History Past Surgical History: Yes Neuro Surgical History: No Pertinent History Cardiac: Cardiac Catheterization Respiratory: No Pertinent History Gastrointestinal: Appendectomy, Cholecystectomy Genitourinary: No Pertinent History Musculoskeletal: No Pertinent History Female Surgical History: Hysterectomy - Social History Smoking Status: Never smoker Exposure to second hand smoke: No Drug Use: none Patient Lives Alone: No - Nursing Vital Signs Nursing Vital Signs: Initial Vital Signs Temperature 97.5 F 06/18/22 18:41 Pulse Rate 90 06/18/22 18:41 Respiratory Rate 18 06/18/22 18:41 Blood Pressure 136/73 06/18/22 18:41 O2 Sat by Pulse Oximetry 93 L 06/18/22 18:41 Pain Scale Pain Intensity 4 - Physical Exam General Appearance: no apparent distress, alert Eye Exam: PERRL/EOMI Ears, Nose, Throat Exam: normal ENT inspection, pharynx normal Neck Exam: normal inspection, supple, full range of motion Respiratory Exam: normal breath sounds, lungs clear Cardiovascular Exam: regular rate/rhythm, normal heart sounds Gastrointestinal/Abdomen Exam: soft, normal bowel sounds, No tenderness Back Exam: normal inspection Extremity Exam: normal inspection, normal range of motion, pelvis stable Neurologic Exam: alert, oriented x 3, cooperative Skin Exam: normal color SpO2 Interpretation: normal SpO2: 93 O2 Delivery: Room Air - Course EKG Interpreted by Me: RATE (93), Sinus Rhythm, NORMAL AXIS, prolonged QT interv al, Other (PACs, PVCs, nonspecific T wave changes) Ordered Tests: Active Orders 24 hr Category Date Time Status 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 Mechanic STAT Care 06/18/22 19:19 Active EKG-ER Only STAT Care 06/18/22 19:19 Active IV Insertion STAT Care 06/18/22 19:19 Active ABDOMEN AND PELVIS W/0 CONTRAS [CT] Stat Exams 06/18/22 20:18 Taken CHEST 1 VIEW (PORTABLE) Stat Exams 06/18/22 18:57 Taken CBC W DIFF Stat Lab 06/18/22 19:26 Completed CMP Stat Lab 06/18/22 19:26 Completed LIPASE Stat Lab 06/18/22 19:26 Completed NT PRO BNP Stat Lab 06/18/22 19:26 Completed TROPONIN Q3H Lab 06/18/22 19:26 Completed TROPONIN Q3H Lab 06/18/22 22:00 Ordered TROPONIN Q3H Lab 06/19/22 01:00 Ordered TROPONIN Q3H Lab 06/19/22 04:00 Ordered TROPONIN Q3H Lab 06/19/22 07:00 Ordered Transfer Order Routine Transfer 06/18/22 Ordered Medication Summary Discontinued Medications Generic Name Dose Route Start Last Admin Trade Name Freq PRN Reason Stop Dose Admin Nitroglycerin 0.5 gm 06/18/22 19:20 06/18/22 19:23 Nitroglycerin 1 Gm Packet TOP 06/18/22 19:21 0.5 gm STAT ONE Administration Nitroglycerin Confirm 06/18/22 19:22 Nitroglycerin 1 Gm Packet Administered 06/18/22 19:23 Dose 1 gm .ROUTE .STK-MED ONE Lab/Rad Data: Laboratory Result Diagrams 06/18/22 19:26 06/18/22 19:26 Laboratory Results 06/18/22 06/18/22 06/18/22 Range/Units 19:26 19:26 19:26 WBC (4.0-10.5) x10^3/uL RBC (4.1-5.4) x10^6/uL Hgb (12.0-16.0) g/dL Hct (35-47) % MCV (78-100) fL MCH (26-32) pg MCHC (32-36) g/dL RDW (11.5-14.0) % Plt Count (150-450) x10^3/uL MPV (7.5-11.0) fL Gran % (36.0-66.0) % Immature Gran % (Auto) (0.00-0.4) % Nucleat RBC Rel Count (0.00-0.1) % Eos # (Auto) (0-0.5) x10^3/uL Immature Gran # (Auto) (0.00-0.03) x10^3u/L Absolute Lymphs (auto) (1.0-4.6) x10^3/uL Absolute Monos (auto) (0.0-1.3) x10^3/uL Absolute Nucleated RBC (0.00-0.01) x10^3u/L Lymphocytes % (24.0-44.0) % Monocytes % (0.0-12.0) % Eosinophils % (0.00-5.0) % Basophils % (0.0-0.4) % Absolute Granulocytes (1.4-6.9) x10^3/uL Basophils # (0-0.4) x10^3/uL Sodium 138 (137-145) mmol/L Potassium 3.7 (3.5-5.1) mmol/L Chloride 108 H (98-107) mmol/L Carbon Dioxide 24 (22-30) mmol/L Anion Gap 10.0 (5-15) MEQ/L BUN 15 (7-17) mg/dL Creatinine 0.74 (0.52-1.04) mg/dL Estimated GFR > 60.0 ML/MIN Glucose 120 H (74-106) mg/dL Calcium 9.2 (8.4-10.2) mg/dL Total Bilirubin 0.60 (0.2-1.3) mg/dL AST 154 H (14-36) U/L ALT 56 H (0-35) U/L Alkaline Phosphatase 122 (38-126) U/L Troponin I < 0.012 (0.000-0.034) ng/mL NT-Pro-B Natriuret Pep 1240 (0-1800) pg/mL Serum Total Protein 6.8 (6.3-8.2) g/dL Albumin 3.6 (3.5-5.0) g/dL Lipase 358 H (23-300) U/L 06/18/22 Range/Units 19:26 WBC 10.0 (4.0-10.5) x10^3/uL RBC 4.02 L (4.1-5.4) x10^6/uL Hgb 12.8 (12.0-16.0) g/dL Hct 39.3 (35-47) % MCV 97.8 (78-100) fL MCH 31.8 (26-32) pg MCHC 32.6 (32-36) g/dL RDW 13.6 (11.5-14.0) % Plt Count 200 (150-450) x10^3/uL MPV 11.1 H (7.5-11.0) fL Gran % 88.6 H (36.0-66.0) % Immature Gran % (Auto) 0.4 (0.00-0.4) % Nucleat RBC Rel Count 0.0 (0.00-0.1) % Eos # (Auto) 0.02 (0-0.5) x10^3/uL Immature Gran # (Auto) 0.04 H (0.00-0.03) x10^3u/L Absolute Lymphs (auto) 0.61 L (1.0-4.6) x10^3/uL Absolute Monos (auto) 0.45 (0.0-1.3) x10^3/uL Absolute Nucleated RBC 0.00 (0.00-0.01) x10^3u/L Lymphocytes % 6.1 L (24.0-44.0) % Monocytes % 4.5 (0.0-12.0) % Eosinophils % 0.2 (0.00-5.0) % Basophils % 0.2 (0.0-0.4) % Absolute Granulocytes 8.85 H (1.4-6.9) x10^3/uL Basophils # 0.02 (0-0.4) x10^3/uL Sodium (137-145) mmol/L Potassium (3.5-5.1) mmol/L Chloride (98-107) mmol/L Carbon Dioxide (22-30) mmol/L Anion Gap (5-15) MEQ/L BUN (7-17) mg/dL Creatinine (0.52-1.04) mg/dL Estimated GFR ML/MIN Glucose (74-106) mg/dL Calcium (8.4-10.2) mg/dL Total Bilirubin (0.2-1.3) mg/dL AST (14-36) U/L ALT (0-35) U/L Alkaline Phosphatase (38-126) U/L Troponin I (0.000-0.034) ng/mL NT-Pro-B Natriuret Pep (0-1800) pg/mL Serum Total Protein (6.3-8.2) g/dL Albumin (3.5-5.0) g/dL Lipase (23-300) U/L - Progress Progress: improved Air Movement: good Progress Note: 06/18/22 21:24 82 years old is evaluated for chest pain which improved with nitro prior to arrival. Patient while in the ER had chest pain again and placed Nitropaste which relieved her pain. EKG showed sinus rhythm with some PACs but no ST elevation and negative initial troponin. Patient has elevated transaminases and bilirubin with some elevation and lipase of 358. She did have vomiting and abdominal pain yesterday and day before. I have obtained CT abdomen pelvis as well which is negative for any acute findings. Abdominal exam is nonsurgical. Patient is not in any distress. Discussed with Dr. Gabriel and patient is being admitted for ACS rule out. Plan discussed with patient who understand and agrees with it. Blood Culture(s) Obtained: No Antibiotics given: No Discussed with : Jarrell Will see patient in: hospital (observation) Counseled pt/family regarding: lab results, diagnosis, rad results - Departure Departure Disposition: Observation Clinical Impression: Chest pain, rule out acute myocardial infarction, Elevated liver transaminase level Condition: Stable Critical Care Time: No Referrals: LUDMILA BENAVIDES MD [Primary Care Provider] - Follow up/PCP as directed
[2022-06-18] MEDS ORDERED: NITRO-BID 2% UD PACKETS TOP ONE (19:20)
[2022-06-18] MEDS ORDERED: NITRO-BID 2% UD PACKETS ONE (19:22)
[2022-06-18 19:29] LABS: Absolute Neutrophil Ct (ANC) 8.85 x10^3/uL (1.4-6.9); Basophil (Absolute #) 0.02 x10^3/uL (0-0.4); Eosinophil % 0.2 % (0.00-5.0); Eosinophil (Absolute #) 0.02 x10^3/uL (0-0.5); Hematocrit 39.3 % (35-47); Hemoglobin 12.8 g/dL (12.0-16.0); Lymphocyte (Absolute #) 0.61 x10^3/uL (1.0-4.6); Lymphocytes % 6.1 % (24.0-44.0); Mean Cell Volume 97.8 fL (78-100); Mean Corpuscular Hemoglobin 31.8 pg (26-32); Mean Corpuscular Hgb Concent. 32.6 g/dL (32-36); Mean Platelet Volume 11.1 fL (7.5-11.0); Monocyte (Absolute #) 0.45 x10^3/uL (0.0-1.3); Monocytes % 4.5 % (0.0-12.0); Neutrophil % 88.6 % (36.0-66.0); Platelet Count 200 x10^3/uL (150-450); Red Blood Count 4.02 x10^6/uL (4.1-5.4); Red Cell Distribution Width 13.6 % (11.5-14.0)
[2022-06-18 19:50] LABS: ALBUMIN 3.6 g/dL (3.5-5.0); ALKALINE PHOSPHATASE 122 U/L (38-126); BLOOD UREA NITROGEN 15 mg/dL (7-17); CHLORIDE 108 mmol/L (98-107); Calcium 9.2 mg/dL (8.4-10.2); Carbon Dioxide 24 mmol/L (22-30); Creatinine 1 0.74 mg/dL (0.52-1.04); EST GLOMERULAR FILTRATION RATE > 60.0 ML/MIN; Glucose 120 mg/dL (74-106); NT PRO BNP 1240 pg/mL (0-1800); Potassium 3.7 mmol/L (3.5-5.1); SGOT/AST 154 U/L (14-36); SGPT/ALT 56 U/L (0-35); SODIUM 138 mmol/L (137-145); Total Protein 6.8 g/dL (6.3-8.2)
[2022-06-18] MEDS ORDERED: Ditropan XL 5 MG PO SCH (22:00)
[2022-06-18] MEDS ORDERED: LIPITOR 40MG PO SCH (22:00)
[2022-06-18] MEDS ORDERED: ECOTRIN 81 MG PO SCH (22:00)
[2022-06-18 22:41] LABS: INFLUENZA A NEGATIVE (NEGATIVE); INFLUENZA B NEGATIVE (NEGATIVE); RESPIRATORY SYNCTIAL VIRUS NEGATIVE (Negative); SARS-CoV-2 Xpert Express NEGATIVE (NEGATIVE)
[2022-06-18] MEDS ORDERED: DUONEB 0.5-3 MG/3 ml Neb IH PRN (23:04)
[2022-06-18] MEDS ORDERED: TYLENOL 325 MG PO PRN (23:04)
[2022-06-19] MEDS ORDERED: Ditropan XL 5 MG PO ONE (00:08)
[2022-06-19] MEDS: Paxil 20 MG PO SCH ×2 (00:11→21:10)
[2022-06-19] MEDS: NORVASC 5 MG PO SCH ×2 (00:11→21:10)
[2022-06-19] MEDS: Zestril 20 MG PO SCH ×3 (00:13→21:10)
[2022-06-19] MEDS: Zetia 10 MG PO SCH ×2 (00:13→21:10)
[2022-06-19 05:09] LABS: Absolute Neutrophil Ct (ANC) 4.92 x10^3/uL (1.4-6.9); Basophil (Absolute #) 0.03 x10^3/uL (0-0.4); Eosinophil % 1.1 % (0.00-5.0); Eosinophil (Absolute #) 0.07 x10^3/uL (0-0.5); Hematocrit 38.9 % (35-47); Hemoglobin 12.5 g/dL (12.0-16.0); Lymphocyte (Absolute #) 0.95 x10^3/uL (1.0-4.6); Lymphocytes % 14.5 % (24.0-44.0); Mean Corpuscular Hemoglobin 31.8 pg (26-32); Mean Corpuscular Hgb Concent. 32.1 g/dL (32-36); Mean Platelet Volume 11.4 fL (7.5-11.0); Monocyte (Absolute #) 0.55 x10^3/uL (0.0-1.3); Monocytes % 8.4 % (0.0-12.0); Neutrophil % 75.2 % (36.0-66.0); Platelet Count 185 x10^3/uL (150-450); Red Blood Count 3.93 x10^6/uL (4.1-5.4); Red Cell Distribution Width 13.7 % (11.5-14.0); White Blood Count 6.5 x10^3/uL (4.0-10.5)
[2022-06-19 05:26] LABS: ALBUMIN 3.4 g/dL (3.5-5.0); ALKALINE PHOSPHATASE 204 U/L (38-126); ANION GAP 9.3 MEQ/L (5-15); BLOOD UREA NITROGEN 14 mg/dL (7-17); CHLORIDE 106 mmol/L (98-107); Carbon Dioxide 27 mmol/L (22-30); Creatinine 1 0.74 mg/dL (0.52-1.04); EST GLOMERULAR FILTRATION RATE > 60.0 ML/MIN; Glucose 124 mg/dL (74-106); Potassium 3.5 mmol/L (3.5-5.1); SGOT/AST 655 U/L (14-36); SGPT/ALT 318 U/L (0-35); SODIUM 139 mmol/L (137-145); Total Protein 6.2 g/dL (6.3-8.2)
--- NOTE | 2022-06-19 08:42 | PCM.HP ---
History of Present Illness - Chief Complaint Chief Complaint: Chest pain rule out acute [place] History of Present Illness: is a 82 year old female who developed sudden onset of chest pain yesterday afternoon, she had some nausea and vomiting as well prior to the chest pain, she is pain free this morning, has significantly elevated LFTs but no nausea or vomiting, had elevated lipase in ER, hx of cholecystectomy. no fever, covid and flu were negative on admission. - Review of Systems Constitutional: No Fever, No Chills Respiratory: No Cough, No Short Of Breath Cardiac: Chest Pain Abdominal/Gastrointestinal: Nausea, Vomiting Genitourinary Symptoms: No Dysuria Skin: No Rash All Other Systems: Reviewed and Negative Medications & Allergies Home Medications: Home Medication List Aspirin 81 gm Chew [Baby Aspirin 81 mg Chew] 81 mg PO HS 04/19/12 [History Confirmed 06/18/22] Multivitamin/Iron/Folic Acid [Centrum Complete Multivit Tab] 1 ea PO HS 04/19/12 [History Confirmed 06/18/22] Ezetimibe 10 mg PO HS 08/18/18 [History Confirmed 06/18/22] Atorvastatin Calcium 40 mg PO HS 07/31/20 [History Confirmed 06/18/22] Paroxetine HCl 20 mg [Paxil 20 MG] 20 mg PO HS 07/31/20 [History Confirmed 06/18/22] Amlodipine Besylate 2.5 mg PO HS 06/18/22 [History Confirmed 06/18/22] Calcium Carbonate/Vitamin D3 [Calcium 500-Vit D3 200 Tablet] 1 tab PO HS 06/18/22 [History Confirmed 06/18/22] Lisinopril 20 mg [Zestril 20 MG] 1 tab PO BID 06/18/22 [History Confirmed 06/18/22] Oxybutynin Chloride Xl 5 mg [Ditropan XL 5 MG] 1 tab PO HS 06/18/22 [History Confirmed 06/18/22] Allergies/Adverse Reactions: Allergies Allergy/AdvReac Type Severity Reaction Status Date / Time codeine [Codeine] AdvReac Intermediate chest pain Verified 06/18/22 18:34 - Past Medical History Past Medical History: Yes Neurological History: No Pertinent History ENT History: No Pertinent History Cardiac History: Angina, High Cholesterol, Hypertension Respiratory History: No Pertinent History Endocrine Medical History: No Pertinent History Musculoskelatal History: No Pertinent History GI Medical History: Ulcer, Other History: No Pertinent History Pyscho-Social History: Depression Reproductive Disorders: No Pertinent History Comment: Hx of osteoarthritis and took celebrex. Taken off celebrex due to b leeding ulcers and osteo pain did not recur. - Female History Are you now?: No - Past Surgical History Past Surgical History: Yes Neuro Surgical History: No Pertinent History Cardiac History: Cardiac Catheterization Respiratory Surgery: No Pertinent History GI Surgical History: Appendectomy, Cholecystectomy Genitourinary Surgical Hx: No Pertinent History Musculskeletal Surgical Hx: No Pertinent History Female Surgical History: Hysterectomy - Social History Smoking Status: Never smoker Exposure to second hand smoke: No Alcohol: None Drug Use: none - Physical Exam Vital Signs: Vital Signs - 24 hr Temp Pulse Resp BP Pulse Ox 06/19/22 08:00 97.7 F 67 18 136/64 90 L 06/19/22 04:00 97.7 F 68 18 137/62 94 L 06/18/22 23:23 77 18 96 06/18/22 23:18 97.5 F 89 20 136/61 97 06/18/22 22:10 71 18 146/78 98 06/18/22 21:26 93 L 06/18/22 21:12 148 H 18 148/76 98 06/18/22 20:27 76 18 151/86 96 06/18/22 19:30 80 16 132/56 96 06/18/22 18:41 97.5 F 90 18 136/73 93 L General Appearance: no apparent distress, alert Neurologic Exam: alert, oriented x 3 Respiratory Exam: normal breath sounds, lungs clear, No respiratory distress Cardiovascular Exam: regular rate/rhythm, normal heart sounds, normal peripheral pulses Gastrointestinal/Abdomen Exam: soft, normal bowel sounds, No tenderness, No mass Extremity Exam: normal inspection, normal range of motion, pelvis stable Skin Exam: normal color, warm, dry, No rash Results - Labs Lab/Micro Results: Lab Results-Last 24 Hours 06/18/22 06/18/22 06/18/22 Range/Units 19:26 19:26 19:26 WBC 10.0 (4.0-10.5) x10^3/uL RBC 4.02 L (4.1-5.4) x10^6/uL Hgb 12.8 (12.0-16.0) g/dL Hct 39.3 (35-47) % MCV 97.8 (78-100) fL MCH 31.8 (26-32) pg MCHC 32.6 (32-36) g/dL RDW 13.6 (11.5-14.0) % Plt Count 200 (150-450) x10^3/uL MPV 11.1 H (7.5-11.0) fL Gran % 88.6 H (36.0-66.0) % Immature Gran % (Auto) 0.4 (0.00-0.4) % Nucleat RBC Rel Count 0.0 (0.00-0.1) % Eos # (Auto) 0.02 (0-0.5) x10^3/uL Immature Gran # (Auto) 0.04 H (0.00-0.03) x10^3u/L Absolute Lymphs (auto) 0.61 L (1.0-4.6) x10^3/uL Absolute Monos (auto) 0.45 (0.0-1.3) x10^3/uL Absolute Nucleated RBC 0.00 (0.00-0.01) x10^3u/L Lymphocytes % 6.1 L (24.0-44.0) % Monocytes % 4.5 (0.0-12.0) % Eosinophils % 0.2 (0.00-5.0) % Basophils % 0.2 (0.0-0.4) % Absolute Granulocytes 8.85 H (1.4-6.9) x10^3/uL Basophils # 0.02 (0-0.4) x10^3/uL Sodium 138 (137-145) mmol/L Potassium 3.7 (3.5-5.1) mmol/L Chloride 108 H (98-107) mmol/L Carbon Dioxide 24 (22-30) mmol/L Anion Gap 10.0 (5-15) MEQ/L BUN 15 (7-17) mg/dL Creatinine 0.74 (0.52-1.04) mg/dL Estimated GFR > 60.0 ML/MIN Glucose 120 H (74-106) mg/dL Calcium 9.2 (8.4-10.2) mg/dL Total Bilirubin 0.60 (0.2-1.3) mg/dL AST 154 H (14-36) U/L ALT 56 H (0-35) U/L Alkaline Phosphatase 122 (38-126) U/L Troponin I < 0.012 (0.000-0.034) ng/mL NT-Pro-B Natriuret Pep 1240 (0-1800) pg/mL Serum Total Protein 6.8 (6.3-8.2) g/dL Albumin 3.6 (3.5-5.0) g/dL Lipase (23-300) U/L Influenza Type A Ag (NEGATIVE) Influenza Type B Ag (NEGATIVE) RSV (PCR) (Negative) SARS-CoV-2 (PCR) (NEGATIVE) 06/18/22 06/18/22 06/18/22 Range/Units 19:26 22:02 22:02 WBC (4.0-10.5) x10^3/uL RBC (4.1-5.4) x10^6/uL Hgb (12.0-16.0) g/dL Hct (35-47) % MCV (78-100) fL MCH (26-32) pg MCHC (32-36) g/dL RDW (11.5-14.0) % Plt Count (150-450) x10^3/uL MPV (7.5-11.0) fL Gran % (36.0-66.0) % Immature Gran % (Auto) (0.00-0.4) % Nucleat RBC Rel Count (0.00-0.1) % Eos # (Auto) (0-0.5) x10^3/uL Immature Gran # (Auto) (0.00-0.03) x10^3u/L Absolute Lymphs (auto) (1.0-4.6) x10^3/uL Absolute Monos (auto) (0.0-1.3) x10^3/uL Absolute Nucleated RBC (0.00-0.01) x10^3u/L Lymphocytes % (24.0-44.0) % Monocytes % (0.0-12.0) % Eosinophils % (0.00-5.0) % Basophils % (0.0-0.4) % Absolute Granulocytes (1.4-6.9) x10^3/uL Basophils # (0-0.4) x10^3/uL Sodium (137-145) mmol/L Potassium (3.5-5.1) mmol/L Chloride (98-107) mmol/L Carbon Dioxide (22-30) mmol/L Anion Gap (5-15) MEQ/L BUN (7-17) mg/dL Creatinine (0.52-1.04) mg/dL Estimated GFR ML/MIN Glucose (74-106) mg/dL Calcium (8.4-10.2) mg/dL Total Bilirubin (0.2-1.3) mg/dL AST (14-36) U/L ALT (0-35) U/L Alkaline Phosphatase (38-126) U/L Troponin I 0.014 (0.000-0.034) ng/mL NT-Pro-B Natriuret Pep (0-1800) pg/mL Serum Total Protein (6.3-8.2) g/dL Albumin (3.5-5.0) g/dL Lipase 358 H (23-300) U/L Influenza Type A Ag NEGATIVE (NEGATIVE) Influenza Type B Ag NEGATIVE (NEGATIVE) RSV (PCR) NEGATIVE (Negative) SARS-CoV-2 (PCR) NEGATIVE (NEGATIVE) 06/19/22 06/19/22 06/19/22 Range/Units 01:27 04:35 04:35 WBC 6.5 (4.0-10.5) x10^3/uL RBC 3.93 L (4.1-5.4) x10^6/uL Hgb 12.5 (12.0-16.0) g/dL Hct 38.9 (35-47) % MCV 99.0 (78-100) fL MCH 31.8 (26-32) pg MCHC 32.1 (32-36) g/dL RDW 13.7 (11.5-14.0) % Plt Count 185 (150-450) x10^3/uL MPV 11.4 H (7.5-11.0) fL Gran % 75.2 H (36.0-66.0) % Immature Gran % (Auto) 0.3 (0.00-0.4) % Nucleat RBC Rel Count 0.0 (0.00-0.1) % Eos # (Auto) 0.07 (0-0.5) x10^3/uL Immature Gran # (Auto) 0.02 (0.00-0.03) x10^3u/L Absolute Lymphs (auto) 0.95 L (1.0-4.6) x10^3/uL Absolute Monos (auto) 0.55 (0.0-1.3) x10^3/uL Absolute Nucleated RBC 0.00 (0.00-0.01) x10^3u/L Lymphocytes % 14.5 L (24.0-44.0) % Monocytes % 8.4 (0.0-12.0) % Eosinophils % 1.1 (0.00-5.0) % Basophils % 0.5 (0.0-0.4) % Absolute Granulocytes 4.92 (1.4-6.9) x10^3/uL Basophils # 0.03 (0-0.4) x10^3/uL Sodium (137-145) mmol/L Potassium (3.5-5.1) mmol/L Chloride (98-107) mmol/L Carbon Dioxide (22-30) mmol/L Anion Gap (5-15) MEQ/L BUN (7-17) mg/dL Creatinine (0.52-1.04) mg/dL Estimated GFR ML/MIN Glucose (74-106) mg/dL Calcium (8.4-10.2) mg/dL Total Bilirubin (0.2-1.3) mg/dL AST (14-36) U/L ALT (0-35) U/L Alkaline Phosphatase (38-126) U/L Troponin I 0.013 0.012 (0.000-0.034) ng/mL NT-Pro-B Natriuret Pep (0-1800) pg/mL Serum Total Protein (6.3-8.2) g/dL Albumin (3.5-5.0) g/dL Lipase (23-300) U/L Influenza Type A Ag (NEGATIVE) Influenza Type B Ag (NEGATIVE) RSV (PCR) (Negative) SARS-CoV-2 (PCR) (NEGATIVE) 06/19/22 06/19/22 Range/Units 04:35 07:00 WBC (4.0-10.5) x10^3/uL RBC (4.1-5.4) x10^6/uL Hgb (12.0-16.0) g/dL Hct (35-47) % MCV (78-100) fL MCH (26-32) pg MCHC (32-36) g/dL RDW (11.5-14.0) % Plt Count (150-450) x10^3/uL MPV (7.5-11.0) fL Gran % (36.0-66.0) % Immature Gran % (Auto) (0.00-0.4) % Nucleat RBC Rel Count (0.00-0.1) % Eos # (Auto) (0-0.5) x10^3/uL Immature Gran # (Auto) (0.00-0.03) x10^3u/L Absolute Lymphs (auto) (1.0-4.6) x10^3/uL Absolute Monos (auto) (0.0-1.3) x10^3/uL Absolute Nucleated RBC (0.00-0.01) x10^3u/L Lymphocytes % (24.0-44.0) % Monocytes % (0.0-12.0) % Eosinophils % (0.00-5.0) % Basophils % (0.0-0.4) % Absolute Granulocytes (1.4-6.9) x10^3/uL Basophils # (0-0.4) x10^3/uL Sodium 139 (137-145) mmol/L Potassium 3.5 (3.5-5.1) mmol/L Chloride 106 (98-107) mmol/L Carbon Dioxide 27 (22-30) mmol/L Anion Gap 9.3 (5-15) MEQ/L BUN 14 (7-17) mg/dL Creatinine 0.74 (0.52-1.04) mg/dL Estimated GFR > 60.0 ML/MIN Glucose 124 H (74-106) mg/dL Calcium 9.0 (8.4-10.2) mg/dL Total Bilirubin 1.00 (0.2-1.3) mg/dL AST 655 H (14-36) U/L ALT 318 H (0-35) U/L Alkaline Phosphatase 204 H (38-126) U/L Troponin I 0.013 (0.000-0.034) ng/mL NT-Pro-B Natriuret Pep (0-1800) pg/mL Serum Total Protein 6.2 L (6.3-8.2) g/dL Albumin 3.4 L (3.5-5.0) g/dL Lipase (23-300) U/L Influenza Type A Ag (NEGATIVE) Influenza Type B Ag (NEGATIVE) RSV (PCR) (Negative) SARS-CoV-2 (PCR) (NEGATIVE) - Radiology Impressions Radiology Exams & Impressions: Radiology Procedures Category Date Time Status ABDOMEN AND PELVIS W/0 CONTRAS [CT] Stat Exams 06/18/22 20:18 Taken CHEST 1 VIEW (PORTABLE) Stat Exams 06/18/22 18:57 Taken Assessment/Plan (1) Acute pancreatitis Current Visit: No Status: Acute Qualifiers: Assessment & Plan: order for clear liquids, will repeat lipase/amylase today as LFTs are significantly higher. no dilation of hepatic ducts on CT Code(s): K85.90 - ACUTE PANCREATITIS WITHOUT NECROSIS OR INFECTION, UNSP (2) Chest pain, rule out acute myocardial infarction Current Visit: Yes Status: Acute Assessment & Plan: noncardiac, secondary to pancreatitis Code(s): R07.9 - CHEST PAIN, UNSPECIFIED (3) Elevated liver transaminase level Current Visit: Yes Status: Acute Code(s): R74.01 - ELEVATION OF LEVELS OF LIVER TRANSAMINASE LEVELS
--- NOTE | 2022-06-19 08:53 | XRAY ---
Indication: Abdomen pain and vomiting. Multiple contiguous axial images obtained through the abdomen and pelvis without contrast. Comparison: July 31, 2020 Lung bases again demonstrates bibasilar subsegmental atelectasis/scarring. No infiltrate or effusion. Heart borderline enlarged. Again small hiatal hernia. Noncontrasted stomach and bowel loops nonobstructed with normal appendix. Again scattered sigmoid diverticulosis, nonobstructing right renal punctate calculus, left renal cysts, hepatic cysts, hysterectomy, and cholecystectomy. No free fluid/air. Remaining liver, pancreas, spleen, adrenal glands, kidneys, ureters, and bladder are unremarkable for noncontrast exam. Again moderate scattered aortoiliac calcifications without AAA. Osseous structures intact again with osteopenia, mild degenerative changes throughout the lumbar spine, and mild bilateral hip degenerative arthropathy. No ventral or inguinal hernias. Impression: 1. Stable hiatal hernia, colonic diverticulosis, nonobstructing right renal micro-calculus, left renal cysts, hepatic cysts, arteriosclerotic disease, and chronic bony findings. 2. Remaining CT abdomen/pelvis without contrast exam is negative.
--- NOTE | 2022-06-19 08:55 | XRAY ---
Indication: Chest pain. Comparison: August 18, 2018. Portable chest remains clear. Heart not enlarged again with tortuous descending aorta. Bony thorax intact again with mild osteopenia and degenerative changes. Impression: Continued nonacute chest with chronic features.
[2022-06-19 09:29] LABS: AMYLASE 228 U/L (30-110)
[2022-06-19 10:30] LABS: LIPASE 3257 U/L (23-300)
[2022-06-19] MEDS: Sodium Chloride 0.9% 1000 ML 1,000 ML IV SCH (10:51)
[2022-06-19] MEDS: PROTONIX 40 MG IV IV SCH (10:54)
[2022-06-19] MEDS: ZOCOR 20MG PO SCH (21:10)
[2022-06-19] MEDS: Ditropan XL 5 MG PO SCH (21:10)
[2022-06-19] MEDS: ECOTRIN 81 MG PO SCH (21:10)
[2022-06-19] MEDS ORDERED: LIPITOR 40MG PO SCH (22:00)
[2022-06-19] MEDS ORDERED: Ditropan XL 5 MG PO SCH (22:00)
[2022-06-20 04:48] LABS: Absolute Neutrophil Ct (ANC) 3.66 x10^3/uL (1.4-6.9); Basophil (Absolute #) 0.03 x10^3/uL (0-0.4); Eosinophil % 4.6 % (0.00-5.0); Eosinophil (Absolute #) 0.28 x10^3/uL (0-0.5); Hematocrit 39.8 % (35-47); Hemoglobin 12.7 g/dL (12.0-16.0); Lymphocyte (Absolute #) 1.57 x10^3/uL (1.0-4.6); Lymphocytes % 25.5 % (24.0-44.0); Mean Cell Volume 98.5 fL (78-100); Mean Corpuscular Hemoglobin 31.4 pg (26-32); Mean Corpuscular Hgb Concent. 31.9 g/dL (32-36); Mean Platelet Volume 11.4 fL (7.5-11.0); Monocytes % 9.8 % (0.0-12.0); Neutrophil % 59.4 % (36.0-66.0); Platelet Count 186 x10^3/uL (150-450); Red Blood Count 4.04 x10^6/uL (4.1-5.4); White Blood Count 6.2 x10^3/uL (4.0-10.5)
[2022-06-20 05:06] LABS: ALBUMIN 3.6 g/dL (3.5-5.0); ALKALINE PHOSPHATASE 228 U/L (38-126); AMYLASE 121 U/L (30-110); ANION GAP 9.7 MEQ/L (5-15); BLOOD UREA NITROGEN 10 mg/dL (7-17); CHLORIDE 109 mmol/L (98-107); Calcium 9.5 mg/dL (8.4-10.2); Carbon Dioxide 26 mmol/L (22-30); Creatinine 1 0.72 mg/dL (0.52-1.04); EST GLOMERULAR FILTRATION RATE > 60.0 ML/MIN; Glucose 100 mg/dL (74-106); LIPASE 502 U/L (23-300); Potassium 3.8 mmol/L (3.5-5.1); SGOT/AST 241 U/L (14-36); SGPT/ALT 232 U/L (0-35); SODIUM 141 mmol/L (137-145); Total Protein 6.6 g/dL (6.3-8.2)
[2022-06-20] MEDS: Sodium Chloride 0.9% 1000 ML 1,000 ML IV SCH ×2 (05:57→22:10)
[2022-06-20] MEDS ORDERED: APRESOLINE 20 MG/ML INJ IV PRN (06:01)
--- NOTE | 2022-06-20 08:43 | PCM.NOTE ---
Date and Time: 06/20/22 0840 Subjective Assessment: Pt is feeling better, no pain currently. Not much appetite; tolerating clear liquids. - Review of Systems Constitutional: No Fever Respiratory: No Cough Abdominal/Gastrointestinal: Appetite Changes, No Abdominal Pain, No Vomiting Objective Exam General Appearance: no apparent distress, alert Neurologic Exam: oriented x 3, cooperative Skin Exam: normal color, warm, dry, No rash Eye Exam: eyes nml inspection Ears, Nose, Throat Exam: moist mucous membranes Neck Exam: normal inspection Respiratory Exam: normal breath sounds, lungs clear, No crackles/rales, No rhonchi, No wheezing Cardiovascular Exam: regular rate/rhythm, normal heart sounds, No murmur Gastrointestinal/Abdomen Exam: soft, No normal bowel sounds (hypoactive but present), No tenderness, No distention, No mass, No guarding, No rebound Extremity Exam: normal inspection, No pedal edema, No swelling Back Exam: normal inspection, No rash OBJECTIVE DATA Vital Signs: Vital Signs - 24 hr Temp Pulse Resp BP Pulse Ox 06/20/22 06:57 97.9 F 62 16 143/64 95 06/20/22 04:00 97.3 F 81 16 189/83 97 06/20/22 00:00 97.7 F 75 17 154/66 93 L 06/19/22 19:11 98.0 F 71 16 117/56 93 L 06/19/22 16:00 97.5 F 82 26 H 131/58 92 L 06/19/22 12:00 98.4 F 67 22 136/61 92 L Pain Assessment - Last Documented Pain Intensity 0 Intake and Output: Intake & Output 06/17/22 06/18/22 06/19/22 06/20/22 11:59 11:59 11:59 11:59 Intake Total 680 1245 Output Total 200 Balance 480 1245 Weight 60 kg 59.7 kg Lab Results: Lab Results-Last 24 Hours 06/19/22 06/20/22 06/20/22 Range/Units 04:35 04:43 04:43 WBC 6.2 (4.0-10.5) x10^3/uL RBC 4.04 L (4.1-5.4) x10^6/uL Hgb 12.7 (12.0-16.0) g/dL Hct 39.8 (35-47) % MCV 98.5 (78-100) fL MCH 31.4 (26-32) pg MCHC 31.9 L (32-36) g/dL RDW 14.0 (11.5-14.0) % Plt Count 186 (150-450) x10^3/uL MPV 11.4 H (7.5-11.0) fL Gran % 59.4 (36.0-66.0) % Immature Gran % (Auto) 0.2 (0.00-0.4) % Nucleat RBC Rel Count 0.0 (0.00-0.1) % Eos # (Auto) 0.28 (0-0.5) x10^3/uL Immature Gran # (Auto) 0.01 (0.00-0.03) x10^3u/L Absolute Lymphs (auto) 1.57 (1.0-4.6) x10^3/uL Absolute Monos (auto) 0.60 (0.0-1.3) x10^3/uL Absolute Nucleated RBC 0.00 (0.00-0.01) x10^3u/L Lymphocytes % 25.5 (24.0-44.0) % Monocytes % 9.8 (0.0-12.0) % Eosinophils % 4.6 (0.00-5.0) % Basophils % 0.5 (0.0-0.4) % Absolute Granulocytes 3.66 (1.4-6.9) x10^3/uL Basophils # 0.03 (0-0.4) x10^3/uL Sodium 141 (137-145) mmol/L Potassium 3.8 (3.5-5.1) mmol/L Chloride 109 H (98-107) mmol/L Carbon Dioxide 26 (22-30) mmol/L Anion Gap 9.7 (5-15) MEQ/L BUN 10 (7-17) mg/dL Creatinine 0.72 (0.52-1.04) mg/dL Estimated GFR > 60.0 ML/MIN Glucose 100 (74-106) mg/dL Calcium 9.5 (8.4-10.2) mg/dL Total Bilirubin 0.70 (0.2-1.3) mg/dL AST 241 H (14-36) U/L ALT 232 H (0-35) U/L Alkaline Phosphatase 228 H (38-126) U/L Serum Total Protein 6.6 (6.3-8.2) g/dL Albumin 3.6 (3.5-5.0) g/dL Amylase 228 H 121 H (30-110) U/L Lipase 3257 H 502 H (23-300) U/L Radiology Exams: Radiology Procedures Category Date Time Status ABDOMEN AND PELVIS W/0 CONTRAS [CT] Stat Exams 06/18/22 20:18 Completed CHEST 1 VIEW (PORTABLE) Stat Exams 06/18/22 18:57 Completed Assessment/Plan (1) Acute pancreatitis Current Visit: No Status: Acute Qualifiers: Pancreatitis type: idiopathic Acute pancreatitis complication: no infection or necrosis Qualified Code(s): K85.00 - Idiopathic acute pancreatitis without necrosis or infection Assessment & Plan: Her labs are improved except for lipase, which is slightly elevated. Will increase IV fluids from 50 to 75 cc/hr. Full liquids as tolerated. Code(s): K85.90 - ACUTE PANCREATITIS WITHOUT NECROSIS OR INFECTION, UNSP (2) Elevated liver transaminase level Current Visit: Yes Status: Acute Assessment & Plan: improved Code(s): R74.01 - ELEVATION OF LEVELS OF LIVER TRANSAMINASE LEVELS
[2022-06-20] MEDS: PROTONIX 40 MG IV IV SCH (08:50)
[2022-06-20] MEDS: Zestril 20 MG PO SCH ×2 (08:50→22:09)
[2022-06-20] MEDS: Ditropan XL 5 MG PO SCH (22:08)
[2022-06-20] MEDS: Paxil 20 MG PO SCH (22:08)
[2022-06-20] MEDS: ECOTRIN 81 MG PO SCH (22:08)
[2022-06-20] MEDS: NORVASC 5 MG PO SCH (22:09)
[2022-06-20] MEDS: ZOCOR 20MG PO SCH (22:09)
[2022-06-20] MEDS: Zetia 10 MG PO SCH (22:09)
[2022-06-21] MEDS: Zestril 20 MG PO SCH (08:43)
[2022-06-21] MEDS: PROTONIX 40 MG IV IV SCH (08:44)
[2022-06-21] MEDS: Sodium Chloride 0.9% 1000 ML 1,000 ML IV SCH (08:52)
--- NOTE | 2022-06-21 09:00 | PCM.DS ---
Discharge Summary Date of Admission: 06/18/22 23:01 Admitting Physician: HEIDE MANSFIELD Primary Care Provider: LUDMILA BENAVIDES Allergies Allergies codeine [Codeine] Adverse Reaction (Intermediate, Verified 06/18/22 18:34) chest pain Hospital Summary - Hospital Course Hospital Course: patient admitted with chest pain, had elevated lipase, hx cholecystectomy. enzymes improved, she is painfree and tolerating a bland diet currently. no pain, no vomiting, no complaints. bp has been high during the stay which is abnormal for Jackie. - Vitals & Intake/Output Vital Signs: Vital Signs Temperature 97.1 F 06/21/22 06:38 Pulse Rate 65 06/21/22 06:38 Respiratory Rate 16 06/21/22 06:38 Blood Pressure 170/76 06/21/22 06:38 O2 Sat by Pulse Oximetry 96 06/21/22 06:38 Intake & Output: Intake & Output 06/18/22 06/19/22 06/20/22 06/21/22 11:59 11:59 11:59 11:59 Intake Total 680 1725 2114 Output Total 200 Balance 480 1725 2114 Weight 60 kg 59.7 kg - Lab Result Diagrams: 06/20/22 04:43 06/20/22 04:43 - Procedures and Test Procedures and Tests throughout Hospitalization: Therapy Orders & Screens 06/18/22 23:22 Respiratory Therapy Assessment DAILY Comment: Diagnosis: Chest pain rule out acute [place] Discharge Exam General Appearance: no apparent distress, alert Respiratory Exam: normal breath sounds, lungs clear, No respiratory distress Cardiovascular Exam: regular rate/rhythm, normal heart sounds Gastrointestinal/Abdomen Exam: soft, No tenderness, No mass Extremity Exam: normal inspection, normal range of motion Skin Exam: normal color, warm, dry Final Diagnosis/Problem List - Final Discharge Diagnosis/Problem (1) Acute pancreatitis Current Visit: No Status: Acute Assessment & Plan: repeat enzymes, tolerating po. counseled on a bland diet at home, likely home this afternoon pending lab results Code(s): K85.90 - ACUTE PANCREATITIS WITHOUT NECROSIS OR INFECTION, UNSP (2) Chest pain, rule out acute myocardial infarction Current Visit: Yes Status: Acute Code(s): R07.9 - CHEST PAIN, UNSPECIFIED (3) Elevated liver transaminase level Current Visit: Yes Status: Acute Code(s): R74.01 - ELEVATION OF LEVELS OF LIVER TRANSAMINASE LEVELS (4) HTN (hypertension) Current Visit: No Status: Chronic Assessment & Plan: increase amlodipine from 2.5 to 5mg daily Code(s): I10 - ESSENTIAL (PRIMARY) HYPERTENSION - Discharge Disposition: Home, Self-Care Condition: Stable Prescriptions: New Amlodipine Besylate 5 mg [Norvasc 5 mg] 1 tab PO QHS #30 tablet Continue Aspirin 81 gm Chew [Baby Aspirin 81 mg Chew] 81 mg PO HS Multivitamin/Iron/Folic Acid [Centrum Complete Multivit Tab] 1 ea PO HS Ezetimibe 10 mg PO HS Paroxetine HCl 20 mg [Paxil 20 MG] 20 mg PO HS Atorvastatin Calcium 40 mg PO HS Lisinopril 20 mg [Zestril 20 MG] 1 tab PO BID Oxybutynin Chloride Xl 5 mg [Ditropan XL 5 MG] 1 tab PO HS Calcium Carbonate/Vitamin D3 [Calcium 500-Vit D3 200 Tablet] 1 tab PO HS Discontinued Amlodipine Besylate 2.5 mg PO HS Follow up with: LUDMILA BENAVIDES MD [Primary Care Provider] - 1 Week
[2022-06-21 09:11] LABS: Basophil (Absolute #) 0.05 x10^3/uL (0-0.4); Eosinophil (Absolute #) 0.35 x10^3/uL (0-0.5); Hematocrit 40.7 % (35-47); Lymphocyte (Absolute #) 1.79 x10^3/uL (1.0-4.6); Lymphocytes % 25.4 % (24.0-44.0); Mean Cell Volume 99.3 fL (78-100); Mean Corpuscular Hemoglobin 31.7 pg (26-32); Mean Corpuscular Hgb Concent. 31.9 g/dL (32-36); Mean Platelet Volume 11.1 fL (7.5-11.0); Monocyte (Absolute #) 0.54 x10^3/uL (0.0-1.3); Monocytes % 7.7 % (0.0-12.0); Neutrophil % 61.1 % (36.0-66.0); Platelet Count 218 x10^3/uL (150-450); Red Cell Distribution Width 13.6 % (11.5-14.0)
[2022-06-21 09:24] LABS: ALBUMIN 3.9 g/dL (3.5-5.0); ALKALINE PHOSPHATASE 206 U/L (38-126); AMYLASE 74 U/L (30-110); ANION GAP 10.1 MEQ/L (5-15); BLOOD UREA NITROGEN 7 mg/dL (7-17); CHLORIDE 108 mmol/L (98-107); Calcium 9.5 mg/dL (8.4-10.2); Carbon Dioxide 27 mmol/L (22-30); Creatinine 1 0.62 mg/dL (0.52-1.04); EST GLOMERULAR FILTRATION RATE > 60.0 ML/MIN; Glucose 121 mg/dL (74-106); LIPASE 217 U/L (23-300); Potassium 3.3 mmol/L (3.5-5.1); SGOT/AST 106 U/L (14-36); SGPT/ALT 157 U/L (0-35); SODIUM 142 mmol/L (137-145)
[2022-06-21 15:46] VITALS: BP 140/61; PULSE 75; O2SAT 98
== END 2022-06-21 17:13 | disposition home or self-care (01) ==
LOC: ED 18:31 → MED SURG 23:01
PROVIDERS: ADMIT Family Medicine; ATTEND Family Medicine
DX: K85.90 Acute pancreatitis without necrosis or infection, unspecified (principal); R07.9 Chest pain, unspecified; R74.01 Elevation of levels of liver transaminase levels; I10 Essential (primary) hypertension; E78.00 Pure hypercholesterolemia, unspecified; Z79.899 Other long term (current) drug therapy; Z20.828 Contact with and (suspected) exposure to other viral communicable diseases
CPT/HCPCS: 0241U; 36000; 36415; 71045; 74176; 80053; 82150; 83690; 83880; 84484; 85025; 93005; 93041; 93268; 99285; G0378; A9270-GY

== ENCOUNTER 2023-01-21 19:32 | Emergency (ER) | payer BC ==
[2023-01-21 21:08] VITALS: O2SAT 96
--- NOTE | 2023-01-21 22:38 | ERPHSYRPT ---
- History of Present Illness Time Seen by Provider: 01/21/23 22:33 Source: patient Exam Limitations: no limitations Patient Subjective Stated Complaint: I fell on my right knee and my left shoulder today around 12:30 and whenever I move my left shoulder it hurts so bad Triage Nursing Assessment: Pt ambulated into ER without difficulty. Pt alert and oriented x4, pleasant and cooperative. Pt was outside today and fell on the sidewalk. Pt c/o left upper arm pain and left shoulder pain. Left arm/shoulder is painful to move, pt is unable to extend her arm all the way up. Pt has a small scrape and bruising to her rt knee from fall but denies any pain to that area. Pt has no difficulty walking. Physician History: pt tripped and fell onto left shoulder no other injuries. no prodrome and no other symptoms. discussed xrya eval and pt agrees and this shows minimally displaced fx. Pt agrees adn has been advised to go to ortho clinic in morning and have definitive treatment. sling and swath meantime. Exam otherwise normal with no other complaints of injuries or findings except abrasion on knee - will update Tdap - pt agrees after discussion of risk and benefits. Full ROM knee without pain and nontender. ligaments intact. NV distal arm also intact. spine nontender . neuro exam normal. no deficits. abd nontender without peritoneal signs or masses. Occurred: this morning Method of Injury: fell Quality: constant Severity of Pain-Max: moderate Severity of Pain-Current: moderate Extremities Pain Location: shoulder: left Modifying Factors: Improves With: movement Associated Symptoms: none Allergies/Adverse Reactions: codeine [Codeine] Adverse Reaction (Intermediate, Verified 01/21/23 21:08) chest pain Home Medications: Aspirin 81 gm Chew [Baby Aspirin 81 mg Chew] 81 mg PO HS 04/19/12 [History] Multivitamin/Iron/Folic Acid [Centrum Complete Multivit Tab] 1 ea PO HS 04/19/12 [History] Ezetimibe 10 mg PO HS 08/18/18 [History] Atorvastatin Calcium 40 mg PO HS 07/31/20 [History] Paroxetine HCl 20 mg [Paxil 20 MG] 20 mg PO HS 07/31/20 [History] Calcium Carbonate/Vitamin D3 [Calcium 500-Vit D3 200 Tablet] 1 tab PO HS [History] Lisinopril 20 mg [Zestril 20 MG] 1 tab PO BID 06/18/22 [History] Oxybutynin Chloride Xl 5 mg [Ditropan XL 5 MG] 1 tab PO HS 06/18/22 [History] Amlodipine Besylate 5 mg [Norvasc 5 mg] 1 tab PO DAILY 01/21/23 [History] Hx Tetanus, Diphtheria Vaccination/Date Given: (unknown) Hx Influenza Vaccination/Date Given: No Hx Pneumococcal Vaccination/Date Given: Yes Travel Risk - International Travel Have you traveled outside of the country in past 3 weeks: No - Coronavirus Screening Are you exhibiting any of the following symptoms?: No Close contact with a COVID-19 positive Pt in past 14-21 Days: No - Vaccine Status Have you recieved a Covid-19 vaccination: Yes Air Bag 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 - Review of Systems Constitutional: No Fever, No Chills Eyes: No Symptoms Ears, Nose, & Throat: No Symptoms Respiratory: No Cough, No Dyspnea Cardiac: No Chest Pain, No Edema, No Syncope Abdominal/Gastrointestinal: No Abdominal Pain, No Nausea, No Vomiting, No Diarrhea Genitourinary Symptoms: No Dysuria Musculoskeletal: Fall, Joint Pain, No Back Pain, No Neck Pain Skin: No Rash Neurological: No Dizziness, No Focal Weakness, No Sensory Changes Psychological: No Symptoms Endocrine: No Symptoms Hematologic/Lymphatic: No Symptoms Immunological/Allergic: No Symptoms All Other Systems: Reviewed and Negative - Past Medical History Pertinent Past Medical History: Yes Neurological History: No Pertinent History ENT History: No Pertinent History Cardiac History: Angina, High Cholesterol, Hypertension Respiratory History: No Pertinent History Endocrine Medical History: No Pertinent History Musculoskeletal History: No Pertinent History GI Medical History: Ulcer, Other History: No Pertinent History Psycho-Social History: Depression Female Reproductive Disorders: No Pertinent History Other Medical History: Hx of osteoarthritis and took celebrex. Taken off celebrex due to bleeding ulcers and osteo pain did not recur. - Past Surgical History Past Surgical History: Yes Neuro Surgical History: No Pertinent History Cardiac: Cardiac Catheterization Respiratory: No Pertinent History Gastrointestinal: Appendectomy, Cholecystectomy Genitourinary: No Pertinent History Musculoskeletal: No Pertinent History Female Surgical History: Hysterectomy - Social History Smoking Status: Never smoker Exposure to second hand smoke: No Drug Use: none Patient Lives Alone: No - Nursing Vital Signs Nursing Vital Signs: Initial Vital Signs Temperature 98.5 F 01/21/23 20:56 Pulse Rate 113 H 01/21/23 20:56 Respiratory Rate 20 01/21/23 20:56 Blood Pressure 156/84 01/21/23 20:56 O2 Sat by Pulse Oximetry 97 01/21/23 20:56 Pain Scale Pain Intensity 5 - Physical Exam General Appearance: no apparent distress, alert Eyes, Ears, Nose, Throat Exam: moist mucous membranes Neck Exam: non-tender, supple Cardiovascular/Respiratory Exam: chest non-tender, normal breath sounds, regular rate/rhythm, no respiratory distress Abdominal Exam: non-tender, No guarding Back Exam: normal inspection, No vertebral tenderness Shoulder Exam: bone tenderness, pain, soft tissue tenderness Elbow/Forearm Exam: normal inspection, non-tender, no evidence of injury, normal ROM Wrist Exam: normal inspection, non-tender, no evidence of injury, normal ROM Hand Exam: normal inspection, non-tender, no evidence of injury, normal ROM DTR - Upper Extremity Exam: bicep (R): 2+, bicep (L): 2+, tricep (R): 2+, tricep (L): 2+ Neuro/Tendon Exam: normal sensation, normal motor functions, normal tendon functions, no evidence tendon injury Mental Status Exam: alert, oriented x 3, cooperative Skin Exam: normal color, warm, dry SpO2 Interpretation: normal SpO2: 96 O2 Delivery: Room Air - Course Nursing assessment & vital signs reviewed: Yes - Radiology Exams Left Shoulder X-ray Interpretation: Reviewed by me, Non-displaced Fracture Ordered Tests: Active Orders 24 hr Category Date Time Status HUMERUS Stat Exams 01/21/23 21:19 Taken SHOULDER Stat Exams 01/21/23 21:18 Taken - Progress Progress: improved, re-examined Progress Note: 01/21/23 22:40 hr now in 90s after resting. Counseled pt/family regarding: diagnosis, need for follow-up, rad results Medical Desision Making - Discussion of managment Reviewed:: Test results, Need for additional workup Agreed on:: Treatment plan, need for follow-up - Diagnostic Testing Diagnostic test were ordered, analyzed, and reviewed by me: Yes Radiological Interpretation: Reviewed by me - Risk of complications Low Risk: Low risk of morbidity from additional dx testing or treatment - Departure Departure Disposition: Home Clinical Impression: nondisplaced/ left Fx shoulder Condition: Good Critical Care Time: No Referrals: LUDMILA BENAVIDES MD [Primary Care Provider] - Follow up/PCP as directed Instructions: Shoulder Fracture (DC) Additional Instructions: go to the ortho clinic in the morning between 8 and 10 am. wear sling. rest arm. take tylenol as needed. return meantime if any symptoms or concerns.
[2023-01-21] MEDS ORDERED: Adacel Vial IM ONE ×2 (22:43→22:51)
[2023-01-21 23:01] VITALS: BP 150/56; PULSE 105
--- NOTE | 2023-01-22 08:48 | XRAY ---
Indication: Pain following fall. Comparison: None 2 view left humerus demonstrates nondisplaced comminuted humeral head/neck fracture. Elsewhere osteopenia and mild acromioclavicular degenerative arthropathy. No other bony, articular, or soft tissue abnormalities.
--- NOTE | 2023-01-22 08:48 | XRAY ---
Indication: Pain following fall. Comparison: None 3 view left shoulder demonstrates nondisplaced comminuted humeral head/neck fracture. Elsewhere osteopenia and mild acromioclavicular degenerative arthropathy. No other bony, articular, or soft tissue abnormalities.
== END 2023-01-21 22:59 | disposition home or self-care (01) ==
LOC: ED 19:32
DX: S42.215A Unspecified nondisplaced fracture of surgical neck of left humerus, initial encounter for closed fracture (principal); W01.0XXA Fall on same level from slipping, tripping and stumbling without subsequent striking against object, initial encounter; Y92.480 Sidewalk as the place of occurrence of the external cause; E78.5 Hyperlipidemia, unspecified; I10 Essential (primary) hypertension; Z79.899 Other long term (current) drug therapy
CPT/HCPCS: 73030; 73060; 90471; 90715; 99283; L3650

== ENCOUNTER 2023-02-03 17:55 | Emergency (ER) | payer BC ==
[2023-02-03 19:03] LABS: Absolute Neutrophil Ct (ANC) 5.92 x10^3/uL (1.4-6.9); BASOPHIL % 0.9 % (0.0-0.4); Basophil (Absolute #) 0.08 x10^3/uL (0-0.4); Eosinophil % 5.4 % (0.00-5.0); Eosinophil (Absolute #) 0.48 x10^3/uL (0-0.5); Hematocrit 37.4 % (35-47); Hemoglobin 11.8 g/dL (12.0-16.0); IMMATURE GRAN # 0.01 x10^3u/L (0.00-0.03); IMMATURE GRAN % 0.1 % (0.00-0.4); Lymphocyte (Absolute #) 1.71 x10^3/uL (1.0-4.6); Lymphocytes % 19.3 % (24.0-44.0); Mean Cell Volume 100.3 fL (78-100); Mean Corpuscular Hemoglobin 31.6 pg (26-32); Mean Corpuscular Hgb Concent. 31.6 g/dL (32-36); Monocyte (Absolute #) 0.68 x10^3/uL (0.0-1.3); Monocytes % 7.7 % (0.0-12.0); Neutrophil % 66.6 % (36.0-66.0); Platelet Count 352 x10^3/uL (150-450); Red Blood Count 3.73 x10^6/uL (4.1-5.4); Red Cell Distribution Width 13.2 % (11.5-14.0); White Blood Count 8.9 x10^3/uL (4.0-10.5)
--- NOTE | 2023-02-03 19:09 | ERPHSYRPT ---
- History of Present Illness Time Seen by Provider: 02/03/23 19:06 Source: patient Exam Limitations: no limitations Patient Subjective Stated Complaint: Pt fell on 01/21/[address] and injured her left shoulder and at the same time she had landed on her right knee but didn't have it looked at at that time, pt later had Dr. Urbina CHILD CARE PROVIDER look at it and she wrapped it in an jessie bandage and pt hadn't removed since it was placed, bandage was on pretty tight and the lower ext began to swell and turn red, pt came to the ER due to the swelling and redness below the bandage Triage Nursing Assessment: Pt brought to the ER by his , bhavin hay, denies pain, removed bandage and knee is yellow from old bruising and has edema, below bandage area it is red and swolen, edema to the right foot, pt has not had any x-rays to the knee, pt is to have an ultraound of the knee on Sunday but became concerned due to the amound of swelling and redness today, pulses normal Physician History: Pt fell on 01/21/[address] and injured her left shoulder and at the same time she had landed on her right knee but didn't have it looked at at that time, pt later had Dr. Urbina CHILD CARE PROVIDER look at it and she wrapped it in an jessie bandage and pt hadn't removed since it was placed, bandage was on pretty tight and the lower ext began to swell and turn red, pt came to the ER due to the swelling and redness below the bandage denies pain, removed bandage and knee is yellow from old bruising and has edema, below bandage area it is red and swolen, edema to the right foot, pt has not had any x-rays to the knee, pt is to have an ultraound of the knee on Sunday but became concerned due to the amound of swelling and redness today, Occurred: days ago Lower Extremities Pain: leg: right Modifying Factors: Improves With: cold therapy Associated Symptoms: none Allergies/Adverse Reactions: codeine [Codeine] Adverse Reaction (Intermediate, Verified 02/03/23 18:37) chest pain Home Medications: Aspirin 81 gm Chew [Baby Aspirin 81 mg Chew] 81 mg PO HS 04/19/12 [History] Multivitamin/Iron/Folic Acid [Centrum Complete Multivit Tab] 1 ea PO HS 04/19/12 [History] Ezetimibe 10 mg PO HS 08/18/18 [History] Atorvastatin Calcium 40 mg PO HS 07/31/20 [History] Paroxetine HCl 20 mg [Paxil 20 MG] 20 mg PO HS 07/31/20 [History] Calcium Carbonate/Vitamin D3 [Calcium 500-Vit D3 200 Tablet] 1 tab PO HS 06/18/22 [History] Lisinopril 20 mg [Zestril 20 MG] 1 tab PO BID 06/18/22 [History] Oxybutynin Chloride Xl 5 mg [Ditropan XL 5 MG] 1 tab PO HS 06/18/22 [History] Amlodipine Besylate 5 mg [Norvasc 5 mg] 1 tab PO DAILY 01/21/23 [History] Hx Tetanus, Diphtheria Vaccination/Date Given: (unknown) Hx Influenza Vaccination/Date Given: No Hx Pneumococcal Vaccination/Date Given: Yes Travel Risk - International Travel Have you traveled outside of the country in past 3 weeks: No - Coronavirus Screening Are you exhibiting any of the following symptoms?: No Close contact with a COVID-19 positive Pt in past 14-21 Days: No - Vaccine Status Have you recieved a Covid-19 vaccination: Yes 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: [employer] - Vaccination Dates Date of 2cond Vaccination (if applicable): 2020 - Review of Systems Constitutional: No Fever, No Chills Eyes: No Symptoms Ears, Nose, & Throat: No Symptoms Respiratory: No Cough, No Dyspnea Cardiac: No Chest Pain, No Edema, No Syncope Abdominal/Gastrointestinal: No Abdominal Pain, No Nausea, No Vomiting, No Diarrhea Genitourinary Symptoms: No Dysuria Musculoskeletal: No Back Pain, No Neck Pain Skin: Cellulitis (right leg), No Rash Neurological: No Dizziness, No Focal Weakness, No Sensory Changes Psychological: No Symptoms Endocrine: No Symptoms All Other Systems: Reviewed and Negative - Past Medical History Pertinent Past Medical History: Yes Neurological History: No Pertinent History ENT History: No Pertinent History Cardiac History: Angina, High Cholesterol, Hypertension Respiratory History: No Pertinent History Endocrine Medical History: No Pertinent History Musculoskeletal History: No Pertinent History GI Medical History: Ulcer, Other History: No Pertinent History Psycho-Social History: Depression Female Reproductive Disorders: No Pertinent History Other Medical History: Hx of osteoarthritis and took celebrex. Taken off celebrex due to bleeding ulcers and osteo pain did not recur. - Past Surgical History Past Surgical History: Yes Neuro Surgical History: No Pertinent History Cardiac: Cardiac Catheterization Respiratory: No Pertinent History Gastrointestinal: Appendectomy, Cholecystectomy Genitourinary: No Pertinent History Musculoskeletal: No Pertinent History Female Surgical History: Hysterectomy - Social History Smoking Status: Never smoker Exposure to second hand smoke: No Drug Use: none Patient Lives Alone: No - Nursing Vital Signs Nursing Vital Signs: Initial Vital Signs Temperature 98.0 F 02/03/23 18:19 Pulse Rate 70 02/03/23 18:19 Blood Pressure 132/71 02/03/23 18:19 O2 Sat by Pulse Oximetry 98 02/03/23 18:19 Pain Scale Pain Intensity 0 - Physical Exam General Appearance: alert Eyes, Ears, Nose, Throat Exam: moist mucous membranes Neck Exam: non-tender, supple Cardiovascular/Respiratory Exam: chest non-tender, normal breath sounds, regular rate/rhythm, no respiratory distress Gastrointestinal/Abdominal Exam: non-tender, guarding Back Exam: normal inspection, No vertebral tenderness Hips Exam: bilateral: non-tender Legs Exam: right leg: soft tissue tenderness, swelling Neuro/Tendon Exam: normal sensation, normal motor functions Mental Status Exam: alert, oriented x 3, cooperative Skin Exam: normal color, warm, dry SpO2: 98 - Course Nursing assessment & vital signs reviewed: Yes Ordered Tests: Active Orders 24 hr Category Date Time Status CBC W DIFF Stat Lab 02/03/23 19:00 Completed CMP Stat Lab 02/03/23 19:00 Completed PROCALCITONIN Stat Lab 02/03/23 19:00 Received Medication Summary Discontinued Medications Generic Name Dose Route Start Last Admin Trade Name Freq PRN Reason Stop Dose Admin Ceftriaxone Sodium 1,000 mg 02/03/23 19:29 02/03/23 19:39 Ceftriaxone Sodium 1000 Mg Inj Vial IM 02/03/23 19:30 1,000 mg STAT ONE Administration Ceftriaxone Sodium Confirm 02/03/23 19:35 Ceftriaxone Sodium 1000 Mg Inj Vial Administered 02/03/23 19:36 Dose 1,000 mg .ROUTE .STK-MED ONE Lidocaine HCl Confirm 02/03/23 19:35 Lidocaine Hcl 1% 20 Ml Mdv 20 Ml Ml Administered 02/03/23 19:36 Dose 3 ml .ROUTE .K-MED ONE Lab/Rad Data: Laboratory Result Diagrams 02/03/23 19:00 02/03/23 19:00 Laboratory Results 02/03/23 02/03/23 Range/Units 19:00 19:00 WBC 8.9 (4.0-10.5) x10^3/uL RBC 3.73 L (4.1-5.4) x10^6/uL Hgb 11.8 L (12.0-16.0) g/dL Hct 37.4 (35-47) % MCV 100.3 H (78-100) fL MCH 31.6 (26-32) pg MCHC 31.6 L (32-36) g/dL RDW 13.2 (11.5-14.0) % Plt Count 352 (150-450) x10^3/uL MPV 10.0 (7.5-11.0) fL Gran % 66.6 H (36.0-66.0) % Immature Gran % (Auto) 0.1 (0.00-0.4) % Nucleat RBC Rel Count 0.0 (0.00-0.1) % Eos # (Auto) 0.48 (0-0.5) x10^3/uL Immature Gran # (Auto) 0.01 (0.00-0.03) x10^3u/L Absolute Lymphs (auto) 1.71 (1.0-4.6) x10^3/uL Absolute Monos (auto) 0.68 (0.0-1.3) x10^3/uL Absolute Nucleated RBC 0.00 (0.00-0.01) x10^3u/L Lymphocytes % 19.3 L (24.0-44.0) % Monocytes % 7.7 (0.0-12.0) % Eosinophils % 5.4 H (0.00-5.0) % Basophils % 0.9 (0.0-0.4) % Absolute Granulocytes 5.92 (1.4-6.9) x10^3/uL Basophils # 0.08 (0-0.4) x10^3/uL Sodium 143 (137-145) mmol/L Potassium 4.7 (3.5-5.1) mmol/L Chloride 107 (98-107) mmol/L Carbon Dioxide 32 H (22-30) mmol/L Anion Gap 8.5 (5-15) MEQ/L BUN 19 H (7-17) mg/dL Creatinine 0.76 (0.52-1.04) mg/dL Estimated GFR > 60.0 ML/MIN Glucose 101 (74-106) mg/dL Calcium 9.5 (8.4-10.2) mg/dL Total Bilirubin 0.50 (0.2-1.3) mg/dL AST 34 (14-36) U/L ALT 20 (0-35) U/L Alkaline Phosphatase 97 (38-126) U/L Serum Total Protein 6.6 (6.3-8.2) g/dL Albumin 3.6 (3.5-5.0) g/dL - Progress Progress: unchanged Counseled pt/family regarding: lab results, diagnosis, need for follow-up Medical Desision Making - Diagnostic Testing Diagnostic test were ordered, analyzed, and reviewed by me: Yes - Risk of complications Low Risk: Low risk of morbidity from additional dx testing or treatment The pt has a mod risk of morbidity or mortality based on: Need for prescription drug management - Departure Departure Disposition: Home Clinical Impression: Cellulitis of right leg without foot Condition: Stable Critical Care Time: Yes Critical Care Time(excluding separately billable procedures): Critical 30-74 mins Referrals: LUDMILA BENAVIDES MD [Primary Care Provider] - Follow up/PCP as directed Instructions: Cellulitis (Skin Infection), Adult ED Additional Instructions: Discharge/Care Plan DEMETRIS VICKERS was seen on 02/03/23 in the Emergency Room. The patient was counseled regarding Diagnosis,Lab results, Imaging studies, need for follow up and when to return to the Emergency Room. Prescriptions given: Discharge Note I have spoken with the patient and/or caregivers. I have explained the patient's condition, diagnosis and treatment plan based on the information available to me at this time. I have answered the patient's and/or caregiver's questions and addressed any concerns. The patient and/or caregivers have as good understanding of the patient's diagnosis, condition and treatment plan as can be expected at this point. The vital signs have been stable. The patient's condition is stable and appropriate for discharge from the emergency department. The patient will pursue further outpatient evaluation with the primary care nadeem rosario or other designated or consulting physician as outlined in the discharge instructions. The patient and/or caregivers are agreeable to this plan of care and follow-up instructions have been explained in detail. The patient and/or caregivers have received these instruction. The patient/and or caregivers are aware that any significant change in condition or worsening of symptoms should prompt an immediate return to this or the closest emergency department or call 911. DEMETRIS VICKERS was seen on 02/03/23 n the Emergency Room. At that time you were treated for an emergent condition, during your visit Laboratory, Radiology and/or other procedures may have been ordered. It is very important that you follow-up with your Primary Care Physician LUDMILA BENAVIDES within the next 24-48 hours to review your Emergency Room visit and the final results of testing that was ordered. Some test results such as Urine Cultures, Blood Cultures, and other cultures if ordered will not be finalized for 24-48 hours. If you do not have a Primary Care Provider please call the medical records department at [phone] ext [phone] to obtain a copy of your results or you may sign into our patient portal to obtain these results by visiting us @ [email or web address] and completing the following steps: 1. Click on the Patient Portal link 2. Click the Patient Self Enrollment Link to complete the enrollment form and entering your 3. Once the enrollment form is completed you will receive an email with a temporary ID and password at the email address you provided. 4. Next choose a user name and password. Your user name must be at least 4 characters long and your password must be at least 4 characters long. 5. Choose a security question from the list and provide your answer to the question. If you already have signed into the Health Portal you may access your Health Care Information 11/06 by the following steps: 1. Login to our website @ [email or web address] 2. Enter your original user name and password. FAQS The [facility] Health Portal is an online tool that contains your Lab Results, Radiology Reports, Visit History, Discharge Instructions and Health Summary Lab and Radiology Results will not be available for 72 hours on the portal. The Portal is a secure site, passwords are encryted and URLs are re-written so they cannot be copied and pasted. You and authorized family members are the only ones who can access your Portal. Also there is a timeout feature that protects your information if you leave the Portal page open. If you have technical difficulty please use the Contact Us link on the page this will allow you to submit any questions you have regarding the Portal or you may contact the Medical Record Department at [phone] ext [phone]. Prescriptions: Cephalexin Mh 500 mg [Keflex 500 mg] 500 mg PO Q6H #40 cap
[2023-02-03 19:27] LABS: ALBUMIN 3.6 g/dL (3.5-5.0); ALKALINE PHOSPHATASE 97 U/L (38-126); ANION GAP 8.5 MEQ/L (5-15); BLOOD UREA NITROGEN 19 mg/dL (7-17); CHLORIDE 107 mmol/L (98-107); Calcium 9.5 mg/dL (8.4-10.2); Carbon Dioxide 32 mmol/L (22-30); Creatinine 1 0.76 mg/dL (0.52-1.04); EST GLOMERULAR FILTRATION RATE > 60.0 ML/MIN; Glucose 101 mg/dL (74-106); Potassium 4.7 mmol/L (3.5-5.1); SGOT/AST 34 U/L (14-36); SGPT/ALT 20 U/L (0-35); SODIUM 143 mmol/L (137-145); Total Protein 6.6 g/dL (6.3-8.2)
[2023-02-03] MEDS ORDERED: Rocephin 1000 MG INJ IM ONE (19:29)
[2023-02-03] MEDS ORDERED: XYLOCAINE 1% HCL 20 ML MDV ONE (19:35)
[2023-02-03] MEDS ORDERED: Rocephin 1000 MG INJ ONE (19:35)
[2023-02-03 20:06] VITALS: BP 111/62; PULSE 58; O2SAT 95
== END 2023-02-03 20:05 | disposition home or self-care (01) ==
LOC: ED 17:55
DX: L03.115 Cellulitis of right lower limb (principal); R60.9 Edema, unspecified; E78.5 Hyperlipidemia, unspecified; I10 Essential (primary) hypertension; Z79.899 Other long term (current) drug therapy
CPT/HCPCS: 36415; 80053; 84145; 85025; 96372; 99283; 99291; J0696

== ENCOUNTER 2025-02-10 07:57 | Emergency (ER) | payer BC ==
[2025-02-10 08:21] VITALS: TEMP 97.1
--- NOTE | 2025-02-10 08:36 | ERPHSYRPT ---
- History of Present Illness Time Seen by Provider: 02/10/25 08:20 Source: patient, family Exam Limitations: no limitations Patient Subjective Stated Complaint: "I woke up this morning and I was on the floor. I believe I fell out of the bed while I was asleep and I'm on blood thinners so I thought I would come get checked out". Triage Nursing Assessment: Pt presents to ER with complaints of injury post fall out of bed. States unknown what time this occurred but woke up this morning on the floor. Pt has contusion on left forehead and left shoulder. Mild tenderness. Denies pain. Pt is alert and oriented x 3. Respirations are easy. Pupils are PERRL. ROM is WNL. Walks with steady gait. States is on blood thinners due to possible afib. Family is at bedside. Physician History: 84-year-old female presents to emergency department for CT head. Patient states she rolled out of bed while she was sleeping. Patient hit her head on the floor. Patient has a contusion over her left eye. Patient states family advised her to come to the ED to get a CT head as she is on blood thinners for atrial fibrillation. Patient also complains of pain to her left shoulder. Pain described as an ache that is localized no radiation. No associated chest pain or shortness of breath. No nausea vomiting or diaphoresis. No numbness tingling or weakness. No neck pain. Cervical spine cleared clinically. Patient is ambulatory with a painless gait. Patient otherwise feels well. She voices no other complaints or concerns at this time. Patient declined pain medication. Portions of this note were created with voice recognition technology. There may be grammatical, spelling, punctuation or sound alike errors . Timing/Duration: today Severity: moderate Modifying Factors: Improves With: nothing Associated Symptoms: denies symptoms Allergies/Adverse Reactions: codeine [Codeine] Adverse Reaction (Intermediate, Verified 02/10/25 08:07) chest pain Home Medications: Multivitamin/Iron/Folic Acid [Centrum Complete Multivit Tab] 1 ea PO DAILY 04/19/12 [History] Ezetimibe 10 mg PO DAILY 08/18/18 [History] Atorvastatin Calcium 20 mg PO DAILY 07/31/20 [History] Paroxetine HCl 20 mg [Paxil 20 MG] 20 mg PO DAILY 07/31/20 [History] Calcium Carbonate/Vitamin D3 [Calcium 500-Vit D3 200 Tablet] 1 tab PO DAILY 06/18/22 [History] Lisinopril 20 mg [Zestril 20 MG] 1 tab PO BID 06/18/22 [History] Oxybutynin Chloride Xl 5 mg [Ditropan XL 5 MG] 1 tab PO DAILY 06/18/22 [History] Apixaban [Eliquis] 1 tab PO BID 02/10/25 [History] Hx Tetanus, Diphtheria Vaccination/Date Given: No Hx Influenza Vaccination/Date Given: No Hx Pneumococcal Vaccination/Date Given: No Immunizations Up to Date: No Travel Risk - International Travel Have you traveled outside of the country in past 3 weeks: No - Emerging Infectious Disease Are you exhibiting symptoms associated with any current EIDs: No - Review of Systems Constitutional: No Symptoms, No Fever, No Chills Eyes: No Symptoms Ears, Nose, & Throat: No Symptoms Respiratory: No Symptoms, No Cough, No Dyspnea Cardiac: No Symptoms, No Chest Pain, No Edema, No Syncope Abdominal/Gastrointestinal: No Symptoms, No Abdominal Pain, No Nausea, No Vomiting, No Diarrhea Genitourinary Symptoms: No Symptoms, No Dysuria Musculoskeletal: No Symptoms, No Back Pain, No Neck Pain Skin: No Symptoms, No Rash Neurological: No Symptoms, No Dizziness, No Focal Weakness, No Sensory Changes Psychological: No Symptoms Endocrine: No Symptoms Hematologic/Lymphatic: No Symptoms Immunological/Allergic: No Symptoms All Other Systems: Reviewed and Negative - Past Medical History Pertinent Past Medical History: Yes Neurological History: Other ENT History: No Pertinent History Cardiac History: Arrhythmia, High Cholesterol, Hypertension Respiratory History: No Pertinent History Endocrine Medical History: No Pertinent History Musculoskeletal History: Osteoarthritis GI Medical History: Ulcer, Other History: No Pertinent History Psycho-Social History: Depression Female Reproductive Disorders: No Pertinent History Other Medical History: blood thinner to prevent possible blockages/ stroke - Past Surgical History Past Surgical History: Yes Neuro Surgical History: No Pertinent History Cardiac: Cardiac Catheterization Respiratory: No Pertinent History Gastrointestinal: Appendectomy, Cholecystectomy Genitourinary: No Pertinent History Musculoskeletal: No Pertinent History Female Surgical History: Hysterectomy - Social History Smoking Status: Never smoker Exposure to second hand smoke: No - Social Determinants of Health Will the patient participate in the screening: Yes Do you worry about a steady place to live?: No Do you have any problems with any of the following?: No known problems In the past 12 months,have you had to go without utilities?: No Transportation Issues: No Has anyone in your support network made you feel unsafe?: No Have you or anyone in your house had to go w/o enough food: No - Nursing Vital Signs Nursing Vital Signs: Initial Vital Signs Pulse Rate 67 02/10/25 08:08 Respiratory Rate 16 02/10/25 08:08 Blood Pressure 181/77 02/10/25 08:08 O2 Sat by Pulse Oximetry 100 02/10/25 08:08 Pain Scale Pain Intensity 4 - Physical Exam General Appearance: no apparent distress, alert, other (Contusion over left eyebrow no open or draining lesions. No involvement of the globe. No change in visual acuity.) Eye Exam: PERRL/EOMI, eyes nml inspection Ears, Nose, Throat Exam: normal ENT inspection, TMs normal, pharynx normal, moist mucous membranes Neck Exam: normal inspection, non-tender, supple, full range of motion, other (No neck pain. Cervical spine cleared clinically.) Respiratory Exam: normal breath sounds, lungs clear, airway intact, No respiratory distress Cardiovascular Exam: regular rate/rhythm, normal heart sounds, normal peripheral pulses Gastrointestinal/Abdomen Exam: soft, normal bowel sounds, No tenderness, No mass Back Exam: normal inspection, normal range of motion, No CVA tenderness, No vertebral tenderness Extremity Exam: normal inspection, normal range of motion, pelvis stable, other (Tenderness to palpation left lateral deltoid. Overlying soft tissue intact. The involved extremities neurovascular intact distally compartments are soft cap refill less than 2 seconds.) Neurologic Exam: alert, oriented x 3, cooperative, normal mood/affect, sensation nml, No motor deficits Skin Exam: normal color, warm, dry, No rash Lymphatic Exam: No adenopathy SpO2 Interpretation: normal SpO2: 99 O2 Delivery: Room Air - Course Nursing assessment & vital signs reviewed: Yes - Radiology Exams Shoulder X-ray Interpretation: Teleradiologist Report (No fracture dislocations. No ac leonel findings) Hip X-ray Interpretation: Teleradiologist Report (No fractures or dislocations. No acute findings) - CT Exams Head CT Interpretation: Tele-radiologist Report (No acute intracranial pathology) Ordered Tests: Active Orders 24 hr Category Date Time Status HEAD WITHOUT CONTRAST [CT] Stat Exams 02/10/25 08:30 Completed HIP UNI (2V) INCL PEL IF DONE Stat Exams 02/10/25 09:04 Completed SHOULDER Stat Exams 02/10/25 08:30 Completed - Progress Progress: improved Progress Note: 84-year-old female presents to our ED for evaluation post fall out of bed. Physical exam reveals contusion to left forehead. Some tenderness at her left shoulder. Patient later told her status left hip was bothersome. CT head negative for acute intracranial pathology. X-ray of the left shoulder and left hip negative for fracture dislocation. No acute pathology observed. Patient declined pain medication. Portions of this note were created with voice recognition technology. There may be grammatical, spelling, punctuation or sound alike errors Complexity of problem addressed is moderate acute complicated. No critical care time. Complex of data reviewed and analyzed is moderate. Test ordered chest reviewed results analyzed and correlated clinically with history and physical exam. Risk of complication and or risk of morbidity/mortality of patient management is low. Vital stable. Time spent to discharge patient is approximately 15 minutes. Plan of care established for shared decision making. No social determinants of health present to impede follow-up. Portions of this note were created with voice recognition technology. There may be grammatical, spelling, punctuation or sound alike errors 02/10/25 10:00 Counseled pt/family regarding: diagnosis, need for follow-up, rad results - Departure Departure Disposition: Home Clinical Impression: Fall, Eyebrow contusion, Shoulder contusion Condition: Stable Critical Care Time: No Referrals: LUDMILA BENAVIDES MD [Primary Care Provider] - Follow up/PCP as directed Additional Instructions: Discharge/Care Plan DEMETRIS VICKERS was seen on 02/10/25 in the Emergency Room. The patient was counseled regarding Diagnosis,Lab results, Imaging studies, need for follow up and when to return to the Emergency Room. Prescriptions given: Discharge Note I have spoken with the patient and/or caregivers. I have explained the patient's condition, diagnosis and treatment plan based on the information available to me at this time. I have answered the patient's and/or caregiver's questions and addressed any concerns. The patient and/or caregivers have as good understanding of the patient's diagnosis, condition and treatment plan as can be expected at this point. The vital signs have been stable. The patient's condition is stable and appropriate for discharge from the emergency department. The patient will pursue further outpatient evaluation with the primary care physician or other designated or consulting physician as outlined in the discharge instructions. The patient and/or caregivers are agreeable to this plan of care and follow-up instructions have been explained in detail. The patient and/or caregivers have received these instruction. The patient/and or caregivers are aware that any significant change in condition or worsening of symptoms should prompt an immediate return to this or the closest emergency department or call 911.
[2025-02-10 09:04] VITALS: BP 175/78; PULSE 67; RESP 20
--- NOTE | 2025-02-10 09:24 | XRAY ---
Indication: Pain following fall. Comparison: February 27, 2023 3 view left shoulder demonstrates healed humeral neck fracture. Stable osteopenia, mild AC degenerative arthropathy, tiny spurring lateral humeral head, and tiny left hilar calcified nodes. No acute abnormalities.
--- NOTE | 2025-02-10 09:38 | XRAY ---
Indication: Pain following fall. Comparison: None AP pelvis and 2 view left hip demonstrates osteopenia. No other bony, articular, or soft tissue abnormalities.
--- NOTE | 2025-02-10 09:56 | XRAY ---
Indication: Status post fall. Multiple contiguous axial images obtained through the head without contrast. Comparison: None Age-appropriate global atrophy and minimal periventricular degenerative micro-ischemia bilaterally. No acute intracranial hemorrhage, abnormal extra-axial fluid collection, or mass effect. Fourth ventricle is midline without hydrocephalus. Bony calvarium intact. Visualized paranasal sinuses and mastoid air cells are clear. Impression: Nonacute senile brain.
[2025-02-10 10:00] VITALS: O2SAT 99
== END 2025-02-10 10:04 | disposition home or self-care (01) ==
LOC: ED 07:57
DX: S00.12XA Contusion of left eyelid and periocular area, initial encounter (principal); S40.012A Contusion of left shoulder, initial encounter; W06.XXXA Fall from bed, initial encounter; Y93.84 Activity, sleeping; Y92.003 Bedroom of unspecified non-institutional (private) residence as the place of occurrence of the external cause; E78.5 Hyperlipidemia, unspecified; I10 Essential (primary) hypertension; Z79.01 Long term (current) use of anticoagulants; Z79.899 Other long term (current) drug therapy
CPT/HCPCS: 70450; 73030; 73502; 99284

== ENCOUNTER 2025-04-04 02:58 | Emergency (ER) | payer BC ==
[2025-04-04 03:14] VITALS: RESP 18; TEMP 96.1
--- NOTE | 2025-04-04 03:23 | ERPHSYRPT ---
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 She hit her head on the carpet. No bleeding or laceration cruciated after the fall. She reports painful neck range of motion. No neurologic deficits. She is on Eliquis. Occurred: just prior to arrival Reason for Fall: lost balance, fell from standing pos Injuries/Pain Location: head, neck Loss of Consciousness: no loss of consciousness Quality: sharpness Severity of Pain-Max: mild Severity of Pain-Current: none Modifying Factors: Improves With: immobilization. Worsens With: movement Associated Symptoms (Fall): neck pain, No extremity injury, No seizures, No slurred speech, No trouble walking, No vomiting, No vision changes Allergies/Adverse Reactions: codeine [Codeine] Adverse Reaction (Intermediate, Verified 04/04/25 03:04) chest pain Home Medications: Multivitamin/Iron/Folic Acid [Centrum Complete Multivit Tab] 1 ea PO DAILY 04/19/12 [History] Ezetimibe 10 mg PO DAILY 08/18/18 [History] Atorvastatin Calcium 20 mg PO DAILY 07/31/20 [History] Paroxetine HCl 20 mg [Paxil 20 MG] 20 mg PO DAILY 07/31/20 [History] Calcium Carbonate/Vitamin D3 [Calcium 500-Vit D3 200 Tablet] 1 tab PO DAILY 06/18/22 [History] Lisinopril 20 mg [Zestril 20 MG] 1 tab PO BID 06/18/22 [History] Apixaban [Eliquis] 1 tab PO BID 02/10/25 [History] Cephalexin Mh 250 mg [Keflex 250 mg] 250 mg PO DAILY 04/04/25 [History] Mirtazapine 2 tab PO HS 04/04/25 [History] Hx Tetanus, Diphtheria Vaccination/Date Given: No Hx Influenza Vaccination/Date Given: Yes Hx Pneumococcal Vaccination/Date Given: Yes Travel Risk - International Travel Have you traveled outside of the country in past 3 weeks: No - Emerging Infectious Disease Are you exhibiting symptoms associated with any current EIDs: No - Review of Systems All Other Systems: Reviewed and Negative - Past Medical History Pertinent Past Medical History: Yes Neurological History: Other ENT History: No Pertinent History Cardiac History: Arrhythmia, High Cholesterol, Hypertension Respiratory History: No Pertinent History Endocrine Medical History: No Pertinent History Musculoskeletal History: Osteoarthritis GI Medical History: Ulcer, Other History: No Pertinent History Psycho-Social History: Depression Female Reproductive Disorders: No Pertinent History Other Medical History: blood thinner to prevent possible blockages/ stroke - Past Surgical History Past Surgical History: Yes Neuro Surgical History: No Pertinent History Cardiac: Cardiac Catheterization Respiratory: No Pertinent History Gastrointestinal: Appendectomy, Cholecystectomy Genitourinary: No Pertinent History Musculoskeletal: No Pertinent History Female Surgical History: Hysterectomy - Social History Smoking Status: Never smoker Exposure to second hand smoke: No Drug Use: none - Social Determinants of Health Will the patient participate in the screening: Yes Do you worry about a steady place to live?: No Do you have any problems with any of the following?: No known problems In the past 12 months,have you had to go without utilities?: No Transportation Issues: No Has anyone in your support network made you feel unsafe?: No Have you or anyone in your house had to go w/o enough food: No - Nursing Vital Signs Nursing Vital Signs: Initial Vital Signs Temperature 96.1 F 04/04/25 03:05 Pulse Rate 70 04/04/25 03:05 Respiratory Rate 18 04/04/25 03:05 Blood Pressure 163/59 04/04/25 03:05 O2 Sat by Pulse Oximetry 98 04/04/25 03:05 Pain Scale Pain Intensity 3 - David Coma Score Best Eye Response ([facility]): (4) open spontaneously Best Verbal Response ([facility]): (5) oriented Best Motor Response ([facility]): (6) obeys commands David Total: 15 - Physical Exam General Appearance: no apparent distress Head Injury: no evidence of injury Eye Exam: PERRL/EOMI, eyes nml inspection ENT Exam: airway nml, evidence of ENT injury Neck Exam: supple, trachea midline, tenderness, c-collar in place Neurologic Exam: alert, oriented x 3, cooperative, radiation therapist II-XII nml as tested, normal mood/affect, nml cerebellar function, No motor weakness, No slurred speech Skin Exam: normal color, warm, dry, No rash SpO2 Interpretation: normal SpO2: 99 O2 Delivery: Room Air - Course Nursing assessment & vital signs reviewed: Yes Ordered Tests: Active Orders 24 hr Category Date Time Status CERVICAL SPINE WO CONTRAST [CT] Stat Exams 04/04/25 03:23 Completed HEAD WITHOUT CONTRAST [CT] Stat Exams 04/04/25 03:23 Completed - Progress Progress: improved Progress Note: 04/04/25 03:32 Patient presents with ground-level fall and head/neck injury. She is on Eliquis. CT scan of head and neck ordered to evaluate for injury. C-collar remains in place. Patient reports no significant pain without movement of her neck. Does not need any pain medications at this time. 04/04/25 05:11 CT head and neck neg for acute pathology. C collar removed. DC home. Counseled pt/family regarding: diagnosis, rad results Medical Desision Making - Diagnostic Testing Diagnostic test were ordered, analyzed, and reviewed by me: Yes Radiological Interpretation: Reviewed by me, Teleradiologist Report - Risk of complications Low Risk: Low risk of morbidity from additional dx testing or treatment - Departure Departure Disposition: Home Clinical Impression: Fall, On anticoagulant therapy Condition: Good Critical Care Time: No Referrals: LUDMILA BENAVIDES MD [Primary Care Provider, [facility]] - Follow up/PCP as directed Instructions: Preventing falls in adults
--- NOTE | 2025-04-04 04:41 | XRAY ---
CLINICAL HISTORY: neck pain COMPARISON: No available old studies for comparison. TECHNIQUE: Axial non-contrast CT scan of the brain was performed from the skull base to the high parietal region. One of the following dose reduction techniques was utilized for this exam: Automated exposure control, adjustment of the mA and/or kV according to patient size, use of iterative reconstruction. FINDINGS: Brain Parenchyma: A left frontal periventricular old lacunar infarct is noted. Evidence of chronic small vessel disease is seen in the form of accentuated periventricular white matter hypodensity. No evidence of acute hemorrhage or mass effect. Ventricular System: Mildly widened ventricular system; part of age-related involutional brain changes. Subarachnoid Spaces: Enlarged subarachnoid spaces with deepened fissures, part of age-related involutional brain changes. No evidence of subarachnoid hemorrhage or extra-axial fluid collections. Cerebellum and Brainstem: No masses, lesions, or areas of abnormal density. Orbits: Normal appearance of the globes, optic nerves, and extraocular muscles. No evidence of orbital masses or abnormal density. Sinuses: Apart from mild right sphenoidal sinus opacification, clear paranasal sinuses. No evidence of sinusitis or mucosal thickening. Mastoid Air Cells: Clear mastoid air cells. No evidence of mastoiditis. Skull: Normal skull morphology. IMPRESSION: 1. Evidence of chronic small vessel disease. 2. Age-matched involutional brain changes. 3. Left frontal periventricular lacunar infarct. 4. Mild right sphenoidal sinusitis. 5. No evidence of acute intracranial hemorrhage. 6. If acute ischemia is suspected, further MR evaluation is recommended. Electronically Signed by: Vazquez Dockery MD. (04/04/2025 04:38:11 EDT)
--- NOTE | 2025-04-04 05:00 | XRAY ---
CLINICAL HISTORY: neck pain COMPARISON: No previous studies are available for comparison. TECHNIQUE: CT scan of the cervical spine was performed without the administration of intravenous contrast. Contiguous axial images were obtained from the skull base to the upper thoracic spine. Coronal and sagittal reformatted images were also reviewed. One of the following dose reduction techniques was utilized for this exam. Automated exposure control, adjustment of the mA and/or kV according to patient size, and use of iterative reconstruction. FINDINGS: Vertebrae: Loss of the normal cervical lordotic curve, denoting neck muscle spasm. The vertebral bodies are normal in height and alignment. No evidence of acute fracture or dislocation. The cortical and trabecular bone patterns are normal. No signs of lytic or sclerotic lesions. Normal configuration of the posterior elements. Mild irregularity of the spinous process of C5-C7 with related linear ossifications, possibly degenerative in etiology. 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 C3-4 down C6-7 disc osteophyte complex seen variably compressing the ventral aspect of the subarachnoid space, mildly encroaching upon and narrowing both neural exit foramina on C4-5 and C5-6 level. Facet Joints: Multi-level facet joint arthropathy noted. Neural Foramina: C4-5 and C5-6 bilateral mild foraminal narrowing by disc osteophyte complexes with resultant mild exit nerve root compromise. The neural foramina are patent bilaterally at all levels. Prevertebral Soft Tissues: The prevertebral soft tissues are normal in thickness without evidence of mass or abnormal fluid collection. IMPRESSION: 1. Loss of the normal cervical lordotic curve, denoting neck muscle spasm. 2. Mild irregularity of the spinous process of C5-C7 with related linear ossifications, possibly degenerative in etiology. 3. 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 4. Multi-level disc lesions with associated bony hypertrophy are of most significance on the C4-5 and C5-6 level, causing mild exit nerve root compromise. 5. Multi-level facet and uncovertebral joints arthropathy. Electronically Signed by: Vazquez Dockery MD. (04/04/2025 04:56:00 EDT)
[2025-04-04 05:16] VITALS: BP 158/84; PULSE 68; O2SAT 98
== END 2025-04-04 05:21 | disposition home or self-care (01) ==
LOC: ED 02:58
DX: Z04.3 Encounter for examination and observation following other accident (principal); Z79.01 Long term (current) use of anticoagulants; M54.2 Cervicalgia; I10 Essential (primary) hypertension; Z79.899 Other long term (current) drug therapy
CPT/HCPCS: 70450; 72125; 99284